=== PATIENT | male | born 1950 | race Caucasian/White ===

== ENCOUNTER 2024-12-21 18:14 | Inpatient (IN) | payer MEDICARE, SELFPAY ==
[2024-12-21] VITALS (25 sets, daily range): BP systolic 90–221; BP diastolic 67–160; BMI 40.6; BMI 27.1
[2024-12-21 12:50] LABS: Hematocrit 49.3 % (39.0-52.0); Hemoglobin 16.3 g/dL (13.0-18.0); Mean Corp Hgb Conc. 33.1 g/dL (33.0-37.0); Mean Corpuscular Volume 94.3 fL (80.0-94.0); Nucleated Red Blood Cells % 0 % (-); Platelet Count 240 10^3/uL (130-400); Red Cell Dist. Width 12.7 % (11.5-14.5)
[2024-12-21 13:03] LABS: COVID-19 Antigen Negative (Negative)
[2024-12-21 13:06] LABS: ALT (SGPT) 26 U/L (0-50); AST (SGOT) 22 U/L (17-59); Albumin 4.4 g/dl (3.5-5.0); Alkaline Phosphatase 69 U/L (38-126); Blood Urea Nitrogen 18 mg/dl (9-20); Calcium 9.1 mg/dl (8.4-10.2); Carbon Dioxide 27 mmol/L (22-30); Chloride 106 mmol/L (98-107); Glucose 116 mg/dl (70-99); Potassium 4.5 mmol/L (3.5-5.1); Sodium 138 mmol/L (135-145); Total Protein 7.9 g/dl (6.3-8.2); eGFR > 60.00
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
[2024-12-21 16:06] LABS: Troponin I 0.674 ng/ml
--- NOTE | 2024-12-21 16:25 | HPS.HSE ---
Addendum entered and electronically signed by Darin Scott MD 12/21/24 18:41:
This is an addendum to H&P written by Skye Norris on 12/21/2024. �Patient seen and examined independently with TECHNOLOGY EDUCATION TEACHER.
74-year-old male past medical history of hypertension with medication stopped 5 years due to hypotension, presenting with sweats and chills, cough, chest discomfort for past 5-7 days. �No shortness of breath. �Went to urgent care had chest x-ray
which supposedly clear congestive heart failure versus multilobar pneumonia.
Vital signs show blood pressure of 207/140.
Troponin of 0.674. �Cardiac BNP of 4500. �EKG shows Q waves in leads V1 to V4. �Chest x-ray shows mild basilar opacification likely subsegmental atelectasis, tiny right pleural effusion.
Patient with likely late presentation NSTEMI/congestive heart failure with hypertensive emergency.
Aspirin started. �Heparin drip started. �Check A1c and lipid panel. �Trend troponins until peak. �Check echocardiogram. �40 IV daily. �Nitroglycerin drip. �Cardiology consulted. �N.p.o. past midnight for catheterization tomorrow.
Original Note:
Family Physician
-
Family Physician: Zay Bauman
Chief Complaint
-
cough
History of Present Illness
Patient is a 74-year-old male with past medical history significant for hypertension who presented to [facility] ED for evaluation of ongoing cough for past 5-7 days. Patient reports that he randomly started with a cough 5-7 days a go and it has been
persistent every since. He does acknowledge some orthopnea over the past 5-7 days and states he had subjective fever and chills. He notes that he was on medication for his blood pressure years ago but was stopped because he took it in evening and
his blood pressure was low in evenings. He reports that he monitors blood pressure at home and is sometimes high but always 'comes right back down to 120-130s.' He also reports he believes he was on chelation therapy with primary care provider but
was stopped because of Covid closures. He notes he has not seen his provider since July 2019. With further questioning patient reports some left shoulder pain that he associated to be musculoskeletal or nerve pain. Patient denies any specific chest
pain, nausea, vomiting, diarrhea or diaphoresis.
Medical History
Past Medical History
Past Medical History: Reports Other
Additional Past Medical History:
hypertension
Past Surgical History: Reports Other
Additional Past Surgical History:
2010: polyp removed
Back surgery L-2
Social History
Tobacco: Non-smoker
Alcohol: Occasional
Drug: None
Personal:
Living: With Family
Employment: Employed
Family History
Family History: Other (Mother: brain aneurysm )
Allergies / Home Medications
Allergies reflects when Allergies were last updated in [facility].
Home Medications with original date entered in [facility]
Allergy/Medication List:
Allergies
Allergy/AdvReac Type Severity Reaction Status Date / Time
No Known Allergies Allergy Verified 12/21/24 12:26
Home Medications
ashwagandha extract 120 mg capsule 120 mg PO DAILY 12/21/24
Review of Systems
-
History Source: Patient
Constitutional: Reports No Symptoms
EENT: Reports No Symptoms
Respiratory: Reports Cough and Trouble Breathing (exertional dyspnea )
Cardiac: Reports No Symptoms
Abdomen/GI: Reports No Symptoms
: Reports No Symptoms
Musculoskeletal: Reports No Symptoms
Skin: Reports No Symptoms
Neurological: Reports No Symptoms
Endocrine: Reports No Symptoms
Hematologic/Lymphatic: Reports No Symptoms
Psych: Reports No Symptoms
Physical Exam
Vital Signs
Vital Signs
Temp Pulse Resp BP Pulse Ox
97.8 F 77 17 177/120 94
12/21/24 12:23 12/21/24 14:23 12/21/24 14:15 12/21/24 14:03 12/21/24 15:06
Physical Exam
General: No Apparent Distress, Comfortable and Conversant
HEENT: NormoCephalic, Moist mucous membranes and Atraumatic
Respiratory: Clear and Non Labored Respirations
Cardiac: S1/S2, Regular Rhythm and Tachycardia; No Murmur, Rub or Gallop
Breast: Deferred by me
GI: Soft, Non Tender, Non Distended and Normal Bowel Sounds; No Organomegaly
Rectal: Deferred by Provider
Genito-urinary: Deferred by me
Musculoskeletal: No Clubbing, No Cyanosis and No Edema
Skin: Warm
Neuro: Awake, AO x 3 and Nonfocal/grossly intact
Psych: Calm
Laboratory Results
-
12/21/24 12:34
12/21/24 12:33
Laboratory Results
Total Bilirubin 0.9 mg/dl (0.2-1.3) 12/21/24 12:33
AST 22 U/L (17-59) 12/21/24 12:33
ALT 26 U/L (0-50) 12/21/24 12:33
Alkaline Phosphatase 69 U/L (38-126) 12/21/24 12:33
Troponin I 0.674 ng/ml H* 12/21/24 15:14
Data Reviewed
-
Diagnostic Radiology: Report Reviewed by me (CXR: Mild bibasilar opacification most likely representing subsegmental atelectasis and tiny right pleural effusion. Pulmonary vascularity at least top normal.)
Medical Tests (Nuc Med, Echo, EKG etc): Report Reviewed by me (EKG: NORMAL SINUS RHYTHM ANTEROLATERAL INFARCT , AGE UNDETERMINED)
Lab Data: Labs Reviewed by me (trop 0.674, pBNP 4520)
Impression/Plan
-
IMPRESSION/PLAN:
#cough and exertional dyspnea likely 2/2 late presentation GA and CHF
trop 0.674, pBNP 4520
CXR: Mild bibasilar opacification most likely representing subsegmental atelectasis and tiny right pleural effusion.
Pulmonary vascularity at least top normal.
EKG: NORMAL SINUS RHYTHM
ANTEROLATERAL INFARCT , AGE UNDETERMINED
EKG concern for late presentation anterior GA as with Q waves and ST elevations anteriorly
- Admit to IVU
- Consult cardiology
- trend troponin
- IV Lasix 40mg daily, for suspected CHF
- ECHO in AM
- NPO at midnight for likely electronic lab technician tomorrow
#hypertensive emergency
- start nitro gtt for BP control
Code status: full code
DVT Prophylaxis: heparin gtt
[2024-12-21] MEDS: LASIX 80 MG IV (16:40)
[2024-12-21] MEDS: NITROSTAT (SUBLINGUAL) 0.4 MG SL (16:43)
[2024-12-21] MEDS: ASPIRIN 325 MG PO (16:48)
--- NOTE | 2024-12-21 16:55 | CON.CAR ---
Addendum entered and electronically signed by Dipika Rodrigez MD 12/22/24 08:40:
Late entry: Patient was seen at bedside in the emergency room on December 21, 2024 around 5 PM
I saw and examined the patient.
The Websphere Portal Developer's note was reviewed and I agree with the note.
Comment: Briefly, Dean is a 74-year-old gentleman with untreated hypertension, last medical care obtained prior to [facility], history of relation therapy for hypertension which was stopped in 2019 who presents with 1 week history of cough and
associated shortness of breath as well as orthopnea found to have concern for recent anterior PA with Q waves noted precordially concerning for a late presenting PA. He never had any chest discomfort and does not have any currently. He feels like
his breathing is comfortable on room air. He was also found to be significantly hypertensive on presentation with blood pressures over 200s systolic and 100s diastolic. Troponin is 0.6. In the setting cardiology was consulted in the emergency
room.
Lab work and vital signs reviewed. On exam patient is somewhat anxious, is at bedside, regular rate, normal S1 and S2, no murmurs, rubs or gallops, bibasilar Rales, elevated JVP, normal carotid upstrokes, no carotid bruit, abdomen is soft,
nontender, nondistended with active bowel sounds, warm extremities without significant edema
Recommendations:
1. Given patient is currently chest pain-free with concern for late presenting PA we will work on monitoring patient over night on telemetry, trending troponins and EKGs.
2. Echocardiogram with Definity to assess biventricular function, rule out any significant valvular disease and rule out any evidence of LV thrombus.
3. We discussed risk and benefits of heart catheterization with him to define coronary anatomy which we will pursue tomorrow and patient is agreeable with this.
4. Daily baby aspirin, high intensity statin, beta-jack and nitro drip as discussed with emergency room physician given significant hypertension with concern for possible hypertensive emergency and acute decompensated heart failure, unclear if
systolic/diastolic or both.
5. Aggressive management of cardiovascular risk factors, check lipids and hemoglobin A1c
Further recommendations on findings of all of the above.
Dipika Rodrigez MD, [facility], [facility]
Original Note:
Consultation
Consultation Request
Date/Time Consultation Performed: 12/21/24
Requesting Provider: Dr. Morales
Performing Provider: Irma Bennett PA-C for Dr. Rodrigez
Reason for Consultation: late presentation PA, CHF
Medical History
-
Chief Complaint: SOB
History of Present Illness:
Patient is a 74-year-old male with past medical history of hypertension, previously on medication, however stopped for unclear reasons. He also reports history of chelation therapy for his high blood pressure, which was stopped in 2019 due to
COVID. He has not seen his primary care physician since that time. He reports about a week ago he developed cough and associated shortness of breath with exertion as well as orthopnea. He denies any chest discomfort, although on further
discussion, does state he recently has had some focal chest discomfort and some shoulder discomfort which he thought was muscular in origin. EKG with evidence of Q waves anteriorly suggestive of late presentation PA. Troponin 0.6. With
significant hypertension on arrival cardiology consulted for evaluation
PMH:
History of hypertension
Past Medical History
Past Medical History: Other (in HPI)
Social History
Tobacco: Non-Smoker
Alcohol: Occasional
Drug: None
Personal:
Living: With Family
Employment: Employed
Family History
Family History: Other (malhotra aneurysm in mother)
Allergies / Home Medications
Allergy/AdvReac Type Severity Reaction Status Date / Time
No Known Allergies Allergy Verified 12/21/24 12:26
�Medication �Instructions �Recorded �Confirmed �Type
ashwagandha extract 120 mg capsule 120 mg PO DAILY 12/21/24 12/21/24 History
Review of Systems
-
History Source: Patient and Family
All other systems: Negative unless noted
Physical Exam
Vital Signs
Temp Pulse Resp BP Pulse Ox
97.8 F 77 17 221/160 94
12/21/24 12:23 12/21/24 14:23 12/21/24 14:15 12/21/24 16:43 12/21/24 15:06
Lab Results
12/21/24 12:34
12/21/24 12:33
Troponin I 0.674 ng/ml H* 12/21/24 15:14
Axc-J-Ijmlssfzgff Pept 4520 pg/ml 12/21/24 15:14
Physical Exam
General: No Apparent Distress and Comfortable
HEENT: Normocephalic, Anicteric and Moist Mucous Membranes
Respiratory: Clear and Non Labored Respirations
Cardiac: S1/S2, Regular Rhythm and Other (Tachycardic)
GI: Soft, Non Tender, Non Distended and Normal Bowel Sounds
Musculoskeletal: No Clubbing, No Cyanosis and No Edema
Skin: Warm and Dry
Neuro: AO x 3
Impression / Plan
-
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
Assessment:
Presentation with SOB
Acute CHF, suspected reduced EF
Suspected ischemic cardiomyopathy
Suspected late presentation anterior PA
HTN emergency
History of hypertension with noncompliance
ECHO 12/22/24: pending
Plan:
- Patient presents with shortness of breath and cough which he developed in the last week. He denies any chest pain then or presently
- By EKG concern for late presentation anterior PA as with Q waves and ST elevations anteriorly
- Troponin 0.6, trend
- Status post 324 of aspirin. Continue 81 mg daily
- Start IV heparin
- Check echo with definity, suspect EF will be reduced. want to rule out LV thrombus
- N.p.o. for cardiac catheterization in a.m.
- With evidence of acute heart failure. proBNP 4520. Chest x-ray with evidence of pulmonary edema. Continue IV Lasix, first dose given in ER
- Given significant blood pressure elevation, giving sublingual nitro but likely would place on IV nitro gtt if BPs remain elevated
- d/w patient and at bedside.
- d/w ER nursing
Data Reviewed
-
EKG: Tracing Personally Visualized and interpreted
Radiology: Report Reviewed by me
Labs: Labs Reviewed by me
Old Records: Reviewed
[2024-12-21] MEDS: HEPARIN 4000 UNITS IV (17:19)
[2024-12-21] MEDS: HEPARIN 25000 UNITS/250 ML IV (17:23)
[2024-12-21] MEDS: NITROGLYCERIN PREMIX 250 IV (17:33)
[2024-12-21 17:36] LABS: APTT 33.2 Sec (23.4-35.0)
--- NOTE | 2024-12-21 20:30 | EDRN ---
Went into patient's room to take him upstairs, patient was diaphoretic and blood pressure 111/83, repeat blood pressure completed and was 90/74, placed nitro on standby and lowered patient's head down, also placed patient on 2l NC as o2 was 88%,
patient reporting not feeling well at this time, after placing nitro on standby pressure is coming up with a systolic of 130s, patient reports feeling slightly better, states he is sensitive to medications. When transferring patient up to IVU
updated the nurse receiving the patient of what occurred prior to come up to IVU
[2024-12-21 21:25] LABS: Troponin I 0.728 ng/ml
[2024-12-21] MEDS: LIPITOR PO (21:32)
[2024-12-22] VITALS (40 sets, daily range): BP systolic 100–195; BP diastolic 62–129; BMI 26.9
[2024-12-22 00:06] LABS: APTT 38.3 Sec (23.4-35.0)
[2024-12-22 00:27] LABS: Troponin I 0.759 ng/ml
--- NOTE | 2024-12-22 01:21 | PTCARENOTE ---
Received pt from ED @ 2029. AAOx3. Nitro gtt was put on standby due BP dropping prior to transportation. Reinitiated @ 2100 due to SBP >160. NSR w/ PACs, multiform PVCs on monitor. Heparin gtt running @ 1000 units/hr through right forearm. Trending
trops Q3H with EKG as ordered. Denies SOB @ this time. Verbalized feeling much better post lasix-- no longer coughing. Discussed plan of care for evening and being NPO @ midnight. Pt verbalizes understanding. Call schwarz within reach.
[2024-12-22 03:10] LABS: Hematocrit 43.1 % (39.0-52.0); Hemoglobin 14.7 g/dL (13.0-18.0); Mean Corp Hgb Conc. 34.1 g/dL (33.0-37.0); Mean Corpuscular Volume 93.3 fL (80.0-94.0); Platelet Count 232 10^3/uL (130-400); Red Cell Dist. Width 12.6 % (11.5-14.5)
[2024-12-22 03:33] LABS: Blood Urea Nitrogen 23 mg/dl (9-20); Calcium 8.8 mg/dl (8.4-10.2); Carbon Dioxide 25 mmol/L (22-30); Chloride 106 mmol/L (98-107); Estimated Creatinine Clearance 57 ml/min; Glucose 104 mg/dl (70-99); HDL Cholesterol 36 mg/dl; LDL Cholesterol, Calculated 139 mg/dl; Potassium 4.1 mmol/L (3.5-5.1); Sodium 137 mmol/L (135-145); Very Low Density Lipoprotein 24 mg/dl (0-30); eGFR > 60.00
[2024-12-22 04:02] LABS: Troponin I 0.798 ng/ml
[2024-12-22 07:56] LABS: APTT 52.9 Sec (23.4-35.0)
[2024-12-22 08:13] LABS: Troponin I 0.774 ng/ml
--- NOTE | 2024-12-22 08:23 | PTCARENOTE ---
Assumed care of pt from shift production supervisor RN. AAOx3. NSR on tele, HRs 60s. BP 195/126. Nitro gtt restarted and titrated up to 10mcg/min. Goal SBP < 160. Current BP is 152/96. Continues on Heparin gtt. Next PTT due at 1400. Denies chest pain/discomfort at
this time. Pt remains NPO for cardiac cath today. Echo completed at bedside. Assessment documented. Pt resting in bed, call schwarz in reach.
[2024-12-22] MEDS: LOW STRENGTH ASPIRIN 81 MG PO (08:39)
[2024-12-22] MEDS: LASIX 40 MG IV ×2 (08:39→20:59)
--- NOTE | 2024-12-22 08:41 | ITS.CL.CATH ---
Dumper Bailer Operator - Catheterization
Cardiac Catheterization
Procedure Report:
LEFT HEART CATHETERIZATION
Date of Procedure: December 22, 2024
Referring: Dipika Rodrigez MD, [facility], [facility]
PROCEDURES:
1. Left heart catheterization, coronary angiogram.
2. Moderate sedation.
3. Functional physiologic testing with iFR of RCA
INDICATION: Dean is a 74-year-old gentleman with untreated hypertension, last medical care obtained prior to [facility], history of relation therapy for hypertension which was stopped in 2019 who presents with 1 week history of cough and associated
shortness of breath as well as orthopnea found to have concern for recent anterior SD with Q waves noted precordially concerning for a late presenting SD. He never had any chest discomfort and does not have any currently. He feels like his
breathing is comfortable on room air. He was also found to be significantly hypertensive on presentation with blood pressures over 200s systolic and 100s diastolic. Troponin is 0.6.
ACCESS: Right radial artery, 6Fr. sheath, under US guidance.
HEMODYNAMICS : (mmHg)
AO (s/d) : 175/108
LVEDP : 25
No significant gradient across the aortic valve to suggest aortic stenosis.
CORONARY FINDINGS
Dominance: Right
Left Main Trunk (LMT): Large caliber vessel that gives rise to the LAD and LCx branches. Terminal left main has 20 to 30% stenosis
Left Anterior Descending Artery (LAD): Large caliber vessel that gives off 1 major large caliber arborizing diagonal branchas it courses along the anterior inter-ventricular groove before wrapping around the cardiac apex. There is a 90% hazy
stenosis in the proximal portion and a 80% stenosis in the midportion just distal to the takeoff of a large caliber branching diagonal.
Left Circumflex Artery (LCx): Medium caliber vessel that gives off 2 major obtuse marginal (OM) branches as it courses along the atrio-ventricular (AV) groove. OM1 has 30 to 40% proximal stenosis. OM 2 is a small caliber vessel with 2 serial
ostial and proximal 70% stenosis however this is not a PCI or a CABG target.
Right Coronary Artery (RCA): Large caliber dominant vessel that gives rise to the posterior descending artery (RPDA) and postero-lateral ventricular (RPLV) branches distally. There is diffuse up to 50 to 60% atherosclerotic plaque in the proximal
to midportion. iFR here was negative at 0.98.
HEMODYNAMIC ASSESSMENT OF THE PROXIMAL TO MID WITH A [place] OMNI WIRE: The origin of the RCA was cannulated with a 6 Fr JR guide catheter. Intravenous heparin was administered and the ACT was followed during the procedure. Two hundred micrograms
of intracoronary nitroglycerin was given through the guide catheter. A [place] Omni wire was advanced to the guide catheter tip and normalized just outside the guide catheter. The Omni wire was then carefully manipulated across the stenosis in the
proximal to mid RCA with the iFR above the ischemic threshold serially measuring 0.98 times. The Omni wire was then pulled back to the guide catheter where the Pd/Pa measured 1.0 confirming no baseline drift in pressure readings.
SEDATION: 47 minutes of procedural sedation was utilized. IV Midazolam and IV Fentanyl were administered. An independent medical accountant was present to assist with and help manage the patient's level of consciousness and physiologic status.
RADIATION SUMMARY: Fluoro Time (min): 3.1, Dose (mGy): 461.3, DAP (Gy.cm2) : 29.5
Closure Device: There were no immediate intra-procedural complications. The sheath was pulled in the chemical lab supervisor and a vascular-band applied to the right wrist for radial artery hemostasis using the patent hemostasis technique.
CONCLUSIONS
1. Moderate diffuse up to 50 to 60% atherosclerotic plaque in the proximal to midportion of the RCA with IFR negative at 0.98.
2. Large caliber LAD with 90% stenosis in the proximal portion and 80% stenosis in the midportion at the level of the takeoff of a large arborizing diagonal branch.
3. Elevated LVEDP at 25 mmHg.
RECOMMENDATIONS
1. Wean radial band per protocol. Monitor right hand perfusion and for bleeding from the radial site following removal of the vascular-band following trans-radial access.
2. Continue aggressive medical therapy and risk factor modification for secondary CAD prevention.
3. Heart team discussion with CT surgery consult for consideration for coronary artery bypass grafting to LAD and diagonal given concerns for possible medication adherence and compliance versus PCI to proximal and mid LAD jailing a large arborizing
major diagonal branch.
4. Eventual referral for outpatient cardiac rehab
Dipika Rodrigez MD, FACC, [facility]
--- NOTE | 2024-12-22 10:45 | CM ---
Chart reviewed. Patient is independent of ADLS, lives with his in a [address], 2 YO, 0 DME. Plan is for the patient to return home. CM to follow
[2024-12-22] MEDS: TYLENOL 650 MG PO (11:55)
--- NOTE | 2024-12-22 12:54 | W.PN.HOSP.TC ---
Today's Communication/Plan
-
Continue with nitro infusion
Heparin infusion
Cardiac cath
Echo pending
Continue with aspirin, statin
Continue with IV Lasix
Monitor creatinine closely
Assessment / Plan
Assessment / Plan
General: No Apparent Distress, Comfortable and Conversant
HEENT: NormoCephalic, Moist mucous membranes and Atraumatic
Respiratory: Clear and Non Labored Respirations
Cardiac: S1/S2, Regular Rhythm and Tachycardia; No Murmur, Rub or Gallop
Breast: Deferred by me
GI: Soft, Non Tender, Non Distended and Normal Bowel Sounds; No Organomegaly
Rectal: Deferred by Provider
Genito-urinary: Deferred by me
Musculoskeletal: No Clubbing, No Cyanosis and No Edema
Skin: Warm
Neuro: Awake, AO x 3 and Nonfocal/grossly intact
Psych: Calm
#Hypertension emergency
#Primary hypertension not on meds as outpatient
Currently on nitroglycerin infusion
Postcardiac catheterization to be started on p.o. antihypertensive medication
#NSTEMI
Continue with heparin drip
Echocardiogram pending
Plan for cardiac catheterization today
Continue aspirin and statin
#Acute CHF suspected
#Suspected ischemic cardiomyopathy
Continue with IV Lasix
Seems to have a good response
Will await further echocardiogram results
Goal-directed medical therapy pending cath/echo
#Hyperlipidemia
Continue with high-dose Lipitor
#Impaired glucose tolerance
A1C pending
DVT prophylaxis-heparin infusion
Full code
Anticipated Discharge: > 48 hours
Subjective/Interval History
-
Date of Service: December 22, 2024
States some mild headache due to nitroglycerin drip
Denies any chest pain or palpitations currently
Objective Data
-
Labs:
Laboratory Results
0812/22/24 12/22/24
23:42 02:41 07:35
WBC 6.9
Hgb 14.7
Hct 43.1
Plt Count 232
APTT 38.3 H 52.9 H
Sodium 137
Potassium 4.1
Chloride 106
Carbon Dioxide 25
BUN 23 H
Creatinine 1.2
Glucose 104 H
Calcium 8.8
12/22/24
14:00
WBC
Hgb
Hct
Plt Count
APTT Pending
Sodium
Potassium
Chloride
Carbon Dioxide
BUN
Creatinine
Glucose
Calcium
Vital Signs:
Vital Signs
Temp Pulse Resp BP Pulse Ox
98.5 F 79 16 159/110 92
12/22/24 11:43 12/22/24 11:30 12/22/24 11:43 12/22/24 11:00 12/22/24 11:43
I&O
12/21/24 12/22/24 12/23/24
06:59 06:59 06:59
Output Total 150 / 150 400 / 400
Balance -150 / -150 -400 / -400
[2024-12-22] MEDS: HEPARIN 25000 UNITS/250 ML IV ×2 (13:04→23:02)
[2024-12-22 14:36] LABS: APTT 64.1 Sec (23.4-35.0)
[2024-12-22 15:02] LABS: Glycohemoglobin (HgbA1c) 5.5 % (4.0-5.6)
[2024-12-22 17:15] LABS: ACT-LR - POC 311 Seconds (116-155)
[2024-12-22] MEDS: NITROGLYCERIN PREMIX 250 IV (17:34)
[2024-12-22] MEDS: LIPITOR 80 MG PO (17:46)
[2024-12-22] MEDS: NORVASC 5 MG PO (17:46)
--- NOTE | 2024-12-22 17:47 | PTCARENOTE ---
Pt received s/p [facility]. AAOx3. NSR on tele, HR 70s. BP 170/114. Nitro gtt restarted at 20mcg/min. Titrating for goal systolic BP < 160. R radial with TR band in place, 14 cc remain in device. R radial pulse palpable. Neurovascular checks WDL. Plan to
restart Heparin gtt at 2300. CT surg consulted. Pt resting in bed, call schwarz in reach.
[2024-12-22] MEDS: NSS 1000 IV (17:55)
--- NOTE | 2024-12-22 18:47 | CONSULT.CT ---
Consultation
-
Date/Time Consultation Requested: 12/22/241729
Date/Time Consultation Performed: 12/22/241814
Requesting Provider: Dr. Dipika Rodrigez
Performing Provider: KEREN Ken for Dr. Alber Mathews
Reason for Consultation: Multivessel CAD
Patient History
Physicians
Family Physician: Dr. Zay Bauman
Outpatient [employer] Redevelopment Site Manager: None
Inpatient [employer] Manager: None
History of Present Illness
Mr. Dean Jo is a pleasant 74-year-old male with a PMHx of HTN who presented to [facility] with complains of ongoing cough over the the past 5 to 7 days with accompanying shortness of breath. Patient reported that he initially presented to
urgent care due to his persistent cough in which he was found to be hypertensive and referred to the emergency room. In the emergency room he ruled in for hypertensive emergency. He reported prior history of chelation therapy for his hypertension,
which was stopped in 2019 due to lack of follow-up during pandemic. He reported that he does trend his blood pressure at home which is sometimes high. He further reported orthopnea, dyspnea, PND, and cough over the last 7 days. ProBNP was 4520.
Cardiology was consulted in which there was concern for late presenting FL. He attained a TTE which showed severely reduced LVEF of 24%, hypokinesis of the anterior wall, anterior septum and apical segments, mild to moderate AI, and dilated aortic
root measuring 4.7 cm. Troponin was trended which have plateaued at 0.75-0.77. He underwent a LHC with Dr. Rodrigez which showed disease to LAD and diagonal in which CT surgery was consulted for consideration of CABG.
Past Medical History
Past Medical History: HTN
Past Surgical History
Past Surgical History: None
Family History
Mother: at Age (70s)
Father: at Age (90s)
Family Medical History: Aneurysm (Maternal - Cerebral Aneurysm)
Social History
Alcohol: Occasional
Drug: None
Tobacco: Non-Smoker
Personal:
Living: With Spouse
Allergies
Allergy/AdvReac Type Severity Reaction Status Date / Time
No Known Allergies Allergy Verified 12/21/24 12:26
Home Medications
�Medication �Instructions �Recorded �Confirmed �Type
ashbertagandha extract 120 mg capsule 120 mg PO DAILY 12/21/24 12/21/24 History
Review of Systems
-
History Source: Patient
General: Reports No Symptoms
HEENT: Reports No Symptoms
Respiratory: Reports Cough, PND and Other (Orthopnea)
Cardiac: Reports No Symptoms
Abdomen/GI: Reports No Symptoms
: Reports No Symptoms
Musculoskeletal: Reports No Symptoms
Skin: Reports Other (B/L Varicose Veins)
Neurological: Reports No Symptoms
Physical Exam
Vital Signs
Temp 98.1 F 12/22/24 15:16
Temp route: Oral 12/22/24 15:16
Pulse 77 12/22/24 18:45
Rhythm: Normal sinus rhythm 12/22/24 08:28
With- Bundle Branch Block Confi, PAC's, PVC'S Polymorphic 12/21/24 21:53
Resp Rate 19 12/22/24 15:16
Blood pressure 135/92 12/22/24 18:30
Blood pressure extremity used: Left upper arm 12/22/24 15:16
Position: Lying 12/22/24 15:16
MAP (cuff-Valentin Monitor) 105 12/22/24 18:30
SaO2 93 12/22/24 15:16
Oxygen Mode of Delivery Room air 12/22/24 15:16
Can the patient verbally communicate their pain? Yes 12/22/24 12:55
Pain scale ratin 12/22/24 12:55
Actual Weight 89.9 kg 12/22/24 06:00
Body Mass Index (BMI) 26.9 12/22/24 06:00
Labs
12/22/24 02:41
12/22/24 02:41
APTT 64.1 Sec (23.4-35.0) H 12/22/24 14:09
Hemoglobin A1c 5.5 % (4.0-5.6) 12/21/24 20:50
Troponin I 0.774 ng/ml H* 12/22/24 07:35
Muk-E-Faawraamajt Pept 4520 pg/ml 12/21/24 15:14
Exam
General: Well Developed, Well Nourished and No Apparent Distress
HEENT: Normocephalic, Atraumatic, PERRLA and EOMI
Respiratory: Clear
Cardiac: S1/S2 and Regular Rhythm
GI: Soft, Non Tender, Non Distended and Normal Bowel Sounds
Skin: Warm, Dry and Other (R wrist TR band)
Neuro: Awake, Alert, Oriented, AO x 3 and No Motor Deficits
Extremities: Pulses (+2 DP pulse B/L, +2 Radial B/L)
Psych: Calm
Assessment / Plan
-
#Multivessel CAD
- Patient's case will be discussed with the Attending Physician
- Further details regarding surgical timing and/or intervention will be determined after Attending Physicians full evaluation
- Routine preoperative CXR orders will be initiated including:
- Pre-operative labwork including T & S
- Cerebrovascular US
- CT Chest
- Vein Mapping due to varicose veins
- STS risk stratification score will be calculated after preoperative testing is complete
- Continue NTG and Heparin gtt per Cardiology Team.
[2024-12-22] MEDS: COREG 6.25 MG PO (20:58)
[2024-12-23] VITALS (15 sets, daily range): BP systolic 97–158; BP diastolic 56–98; BMI 26.9; BMI 27.1
[2024-12-23 05:22] LABS: Hematocrit 42.9 % (39.0-52.0); Hemoglobin 14.7 g/dL (13.0-18.0); Mean Corp Hgb Conc. 34.3 g/dL (33.0-37.0); Mean Corpuscular Volume 92.3 fL (80.0-94.0); Platelet Count 226 10^3/uL (130-400); Red Cell Dist. Width 12.8 % (11.5-14.5)
[2024-12-23 05:26] LABS: INR 1.03; PT 14.0 Sec (11.4-14.6)
[2024-12-23 05:28] LABS: APTT 42.7 Sec (23.4-35.0)
[2024-12-23 05:43] LABS: ALT (SGPT) 18 U/L (0-50); AST (SGOT) 19 U/L (17-59); Albumin 3.6 g/dl (3.5-5.0); Alkaline Phosphatase 66 U/L (38-126); Blood Urea Nitrogen 20 mg/dl (9-20); Calcium 8.0 mg/dl (8.4-10.2); Carbon Dioxide 24 mmol/L (22-30); Chloride 106 mmol/L (98-107); Estimated Creatinine Clearance 63 ml/min; Glucose 105 mg/dl (70-99); Potassium 4.0 mmol/L (3.5-5.1); Sodium 136 mmol/L (135-145); Total Protein 6.5 g/dl (6.3-8.2); eGFR > 60.00
[2024-12-23] MEDS: COREG 6.25 MG PO ×2 (08:19→20:14)
[2024-12-23] MEDS: NORVASC 5 MG PO (08:20)
[2024-12-23] MEDS: LOW STRENGTH ASPIRIN 81 MG PO (08:20)
[2024-12-23] MEDS: LASIX 40 MG IV ×2 (09:01→17:34)
--- NOTE | 2024-12-23 11:28 | W.PN.CARDCBS ---
Addendum entered and electronically signed by Jose Garcia MD 12/23/24 12:40:
I saw and examined the patient.
The SAND MIXER MACHINE or PA's note was reviewed and I agree with the note.
Comment: General: Well developed, well nourished in NAD.
Neck: Supple, no JVD, HJR, carotids +2 B/L, no bruits bilaterally.
Heart: Non displaced PMI, RRR, no murmurs, No S3, S4, no rubs.
Lungs: Clear to auscultation bilaterally, no wheeze, rhonchi, rubs bilaterally,
normal expiratory phase.
Extremities: No clubbing, cyanosis or edema bilaterally.
Neuro: Grossly nonfocal, awake, alert and oriented x3.
No chest pain or shortness of breath. Await CT surgical input regarding possible CABG versus high risk stenting. Discussed with patient and nursing in detail. Continue IV heparin
Original Note:
Today's Communication / Plan
-
Awaiting CT surgery input regarding revascularization
Impression / Plan
-
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
Assessment:
Presentation with SOB
Acute HF
ischemic cardiomyopathy
Suspected late presentation anterior HI
HTN emergency
History of hypertension with noncompliance
Coronary artery disease
Cardiac cath 12/22/2024: Left main: Terminal left main 20 to 30% stenosis. LAD: 90% proximal stenosis, 80% mid stenosis at level of takeoff of large diagonal branch. Left circumflex: OM1 30 to 40% proximal, OM2 small caliber vessel with 2 serial
ostial proximal 70% stenosis not a PCI or CABG target. RCA: 50 to 60% atherosclerotic plaque proximal to mid, IFR -0.98. LVEDP 25 mmHg
ECHO 12/22/24: : EF 24%, hypokinesis anterior wall, anterior septum and apical segments consistent with LAD wall motion abnormality, mild to moderate AI
Plan:
- Patient presented 12/1324 with shortness of breath and cough, EKG concern for late presentation anterior HI as with Q waves and ST elevations anteriorly
- Troponin peak 0.798
-Cardiac catheterization 12/22 with multivessel CAD and elevated LVEDP
-Echo 12/22 EF 24%
-In process of heart team discussion with CT surgery consult for consideration for CABG to LAD and diagonal versus PCI to proximal and mid LAD jailing a large arborizing major diagonal branch
-Patient is chest pain-free, nitro weaned down to 5 mcg/minute
- Continue aspirin, statin, beta-jack
- Continue IV heparin
- Advance GDMT for heart failure reduced EF
- Currently on Coreg 6.25 mg twice daily, consider adding REBECCA/ARB but will wait to see if undergoing surgery, Spironolactone, Farxiga
- Labs with stable renal function, creatinine 1.1, BUN 20, K 4.0
- LDL 139, newly started on statin.
Progress Note - [place]erry Terminal Supervisor
Subjective
Date of Service: December 23, 2024
Denies chest pain, shortness of breath
Cath yesterday revealing multivessel CAD, echo with EF 24%
Objective
Labs:
12/23/24 05:04
12/23/24 05:04
Labs
Hgb 14.7 g/dL (13.0-18.0) 12/23/24 05:04
Hct 42.9 % (39.0-52.0) 12/23/24 05:04
Plt Count 226 10^3/uL (130-400) 12/23/24 05:04
PT 14.0 Sec (11.4-14.6) 12/23/24 05:04
INR 1.03 12/23/24 05:04
APTT 42.7 Sec (23.4-35.0) H 12/23/24 05:04
Sodium 136 mmol/L (135-145) 12/23/24 05:04
Potassium 4.0 mmol/L (3.5-5.1) 12/23/24 05:04
BUN 20 mg/dl (9-20) 12/23/24 05:04
Creatinine 1.1 mg/dL (0.7-1.3) 12/23/24 05:04
Glucose 105 mg/dl (70-99) H 12/23/24 05:04
Troponins
12/21/24 12/21/24 12/21/24
15:14 20:49 23:42
Troponin I 0.674 H* 0.728 H* 0.759 H*
12/22/24 12/22/24
02:41 07:35
Troponin I 0.798 H* 0.774 H*
Vital Signs and I&O:
Vital Signs
Temp Pulse Resp BP Pulse Ox
98.2 F 73 18 146/83 96
12/23/24 08:00 12/23/24 09:15 12/23/24 08:00 12/23/24 09:01 12/23/24 08:00
Vital Signs
Temp Pulse Resp BP Pulse Ox
98.2 F 73 18 146/83 96
12/23/24 08:00 12/23/24 09:15 12/23/24 08:00 12/23/24 09:01 12/23/24 08:00
Intake & Output
12/21/24 12/22/24 12/23/24 12/24/24
06:59 06:59 06:59 06:59
Intake Total 500 / 500 480 / 480
Output Total 150 / 150 1000 / 1000 200 / 200
Balance -150 / -150 -500 / -500 280 / 280
Physical Exam
Physical Exam
GEN: No distress, awake, Ox3
HEENT: supple, anicteric, mmm
LUNGS: Decreased at bases
CV: Reg, S1/S2, no murmur
ABD: soft, BS+, NT/ND
EXT: No edema. R radial cath site nontender, dressing in place, no hematoma
NEURO: Gross non-focal
SKIN: No rash
--- NOTE | 2024-12-23 12:16 | W.PN.HOSP.TC ---
Today's Communication/Plan
-
Continue nitro and heparin infusion per cardiology
IV Lasix
Monitor creatinine closely
Await CT surgery input
Assessment / Plan
Assessment / Plan
General: No Apparent Distress, Comfortable and Conversant
HEENT: NormoCephalic, Moist mucous membranes and Atraumatic
Respiratory: Clear and Non Labored Respirations
Cardiac: S1/S2, Regular Rhythm and Tachycardia; No Murmur, Rub or Gallop
Breast: Deferred by me
GI: Soft, Non Tender, Non Distended and Normal Bowel Sounds; No Organomegaly
Rectal: Deferred by Provider
Genito-urinary: Deferred by me
Musculoskeletal: No Clubbing, No Cyanosis and No Edema
Skin: Warm
Neuro: Awake, AO x 3 and Nonfocal/grossly intact
Psych: Calm
#NSTEMI
# Multivessel CAD
Continue with heparin drip
Catheter report noted. Per interventional cardiology await further CT surgery input for bypass versus advanced PCI
Preop testing ordered per CT surgery-ultrasound, CT chest
Continue aspirin and statin and bb.
Currently on nitro infusion
#Hypertension emergency
#Primary hypertension not on meds as outpatient
Currently on nitroglycerin infusion
Continue with carvedilol and Norvasc-added this admit. Uptitrate as needed
#Acute HFrEF
#Suspected ischemic cardiomyopathy
Continue with IV Lasix 40 mg twice daily
Seems to have a good response
Strict I's and O's. Daily weights.
Monitor creatinine. Requires invasive monitoring.
#Hyperlipidemia
Continue with high-dose Lipitor
[id number]
#Impaired glucose tolerance
A1c 5.5
DVT prophylaxis-heparin infusion
Full code
Discussed with patient spouse at bedside in detail
Anticipated Discharge: > 48 hours
Subjective/Interval History
-
Date of Service: December 23, 2024
states of feeling sob wtih exertion
no chest pain
Objective Data
-
Labs:
Laboratory Results
12/23/24 12/23/24
05:04 12:00
WBC 7.5
Hgb 14.7
Hct 42.9
Plt Count 226
PT 14.0
INR 1.03
APTT 42.7 H Pending
Sodium 136
Potassium 4.0
Chloride 106
Carbon Dioxide 24
BUN 20
Creatinine 1.1
Glucose 105 H
Calcium 8.0 L
Total Bilirubin 0.9
AST 19
ALT 18
Alkaline Phosphatase 66
Vital Signs:
Vital Signs
Temp Pulse Resp BP Pulse Ox
97.2 F 76 18 146/83 97
12/23/24 11:37 12/23/24 11:37 12/23/24 11:37 12/23/24 09:01 12/23/24 11:37
I&O
12/22/24 12/23/24 12/24/24
06:59 06:59 06:59
Intake Total 500 / 500 480 / 480
Output Total 150 / 150 1000 / 1000 200 / 200
Balance -150 / -150 -500 / -500 280 / 280
--- NOTE | 2024-12-23 12:24 | CM ---
Chart reviewed. Patient is independent of ADLS, lives with his in a 2 [address], 2 YO, 0 DME. Patient waiting to find out plan of care, CT Surgery vs PCI. CM to follow discharge needs.
--- NOTE | 2024-12-23 12:38 | PTCARENOTE ---
Assumed care at 0700. Patient alert and oriented x4. Denies any chest pain or shortness of breath. Blood pressure remains stable on Nitro drip. Ambulated in room. Patient aware of plan of care. Call schwarz and personal belongings within reach.
[2024-12-23 12:53] LABS: APTT 52.0 Sec (23.4-35.0)
--- NOTE | 2024-12-23 15:19 | W.PN.UPDATE ---
Update Note
Progress Note Update
STS RISK SCORE
Procedure Type:�Isolated CABG
Perioperative Outcome Estimate %
Operative Mortality 3.21%
Morbidity & Mortality 11.1%
Stroke 1.24%
Renal Failure 1.79%
Reoperation 3.54%
Prolonged Ventilation 6.73%
Deep Sternal Wound Infection 0.071%
Long Hospital Stay (>14 days) 5.42%
Short Hospital Stay (<6 days)* 40.2%
Clinical Summary
Planned Surgery: Isolated CABG, Urgent, First cardiovascular surgery
Demographics: 74 year old, male, 90.5kg, 183cm, BMI: 27 kg/m�
Lab Values: Creatinine: 1.1 mg/dL, Hematocrit: 42.9%, WBC Count: 7.5 10�/�L, Platelet Count: 685817 cells/�L
Substance Abuse: Never smoker, Alcohol use: <=1 drink/week
Risk Factors / Comorbidities: Hypertension
Cardiac Status: Acute heart failure, NYHA Class II, Ejection Fraction = 24%
Coronary Artery Disease: 1 vessel diseased, Proximal LAD Stenosis >=70%, STEMI, [place]: 1 to 7 Days
Valve Disease: Moderate AR, Trivial/Trace TR
[2024-12-23] MEDS: LIPITOR 80 MG PO (17:34)
--- NOTE | 2024-12-23 18:00 | PTCARENOTE ---
pt continues to be sr on the monitor hr in the 60s, vss. pt offers no complaints at this time. pt ambulating around room and tolerating well. nitro and heparin gtt running per protocol, see documentation. pt educated on plan of care and pt
verbalized understanding. call schwarz within reach.
[2024-12-23] MEDS: HEPARIN 25000 UNITS/250 ML IV (19:19)
[2024-12-23 20:32] LABS: APTT 66.1 Sec (23.4-35.0)
[2024-12-24 00:44] VITALS: BMI 27.1
[2024-12-24 03:27] VITALS: BP 125/79
[2024-12-24 03:47] LABS: Hematocrit 41.5 % (39.0-52.0); Hemoglobin 14.2 g/dL (13.0-18.0); Mean Corp Hgb Conc. 34.2 g/dL (33.0-37.0); Mean Corpuscular Volume 93.3 fL (80.0-94.0); Nucleated Red Blood Cells % 0 % (-); Platelet Count 203 10^3/uL (130-400); Red Cell Dist. Width 12.7 % (11.5-14.5)
[2024-12-24 03:58] LABS: APTT 82.7 Sec (23.4-35.0)
[2024-12-24 04:11] LABS: Blood Urea Nitrogen 23 mg/dl (9-20); Calcium 8.1 mg/dl (8.4-10.2); Carbon Dioxide 25 mmol/L (22-30); Chloride 105 mmol/L (98-107); Estimated Creatinine Clearance 57 ml/min; Glucose 116 mg/dl (70-99); Magnesium 2.1 mg/dl (1.6-2.3); Potassium 3.7 mmol/L (3.5-5.1); Sodium 137 mmol/L (135-145); eGFR > 60.00
[2024-12-24 04:44] VITALS: BMI 27.1
[2024-12-24 07:22] VITALS: BP 139/87
[2024-12-24] MEDS: NORVASC 5 MG PO (08:09)
[2024-12-24] MEDS: LOW STRENGTH ASPIRIN 81 MG PO (08:09)
[2024-12-24] MEDS: LASIX 40 MG IV (08:09)
[2024-12-24] MEDS: COREG 6.25 MG PO ×2 (08:10→19:59)
--- NOTE | 2024-12-24 09:58 | W.PN.CARDCBS ---
Addendum entered and electronically signed by Jose Garcia MD 12/24/24 10:00:
Volume status appears okay. Change Lasix to 40 mg daily.
Original Note:
Today's Communication / Plan
-
Stable cardiology status
Awaiting timing for CABG
Impression / Plan
-
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
Assessment:
Presentation with SOB
Acute HF
found to have MV CAD cath 12/22
ischemic cardiomyopathy
Suspected late presentation anterior [place]
HTN emergency
History of hypertension with noncompliance
Cardiac cath 12/22/2024: Left main: Terminal left main 20 to 30% stenosis. LAD: 90% proximal stenosis, 80% mid stenosis at level of takeoff of large diagonal branch. Left circumflex: OM1 30 to 40% proximal, OM2 small caliber vessel with 2 serial
ostial proximal 70% stenosis not a PCI or CABG target. RCA: 50 to 60% atherosclerotic plaque proximal to mid, IFR -0.98. LVEDP 25 mmHg
ECHO 12/22/24: : EF 24%, hypokinesis anterior wall, anterior septum and apical segments consistent with LAD wall motion abnormality, mild to moderate AI
Plan:
Await timing for CABG
Stable cardiology status with no chest pain or shortness of breath
Continue IV nitroglycerin and IV heparin
Progress Note - Director Records Management
Subjective
Date of Service: December 24, 2024
No chest pain or shortness of breath
Objective
Labs:
12/24/24 03:35
12/24/24 03:35
Labs
Hgb 14.2 g/dL (13.0-18.0) 12/24/24 03:35
Hct 41.5 % (39.0-52.0) 12/24/24 03:35
Plt Count 203 10^3/uL (130-400) 12/24/24 03:35
PT 14.0 Sec (11.4-14.6) 12/23/24 05:04
INR 1.03 12/23/24 05:04
APTT 82.7 Sec (23.4-35.0) H 12/24/24 03:35
Sodium 137 mmol/L (135-145) 12/24/24 03:35
Potassium 3.7 mmol/L (3.5-5.1) 12/24/24 03:35
BUN 23 mg/dl (9-20) H 12/24/24 03:35
Creatinine 1.2 mg/dL (0.7-1.3) 12/24/24 03:35
Glucose 116 mg/dl (70-99) H 12/24/24 03:35
Troponins
12/21/24 12/21/24 12/21/24
15:14 20:49 23:42
Troponin I 0.674 H* 0.728 H* 0.759 H*
12/22/24 12/22/24
02:41 07:35
Troponin I 0.798 H* 0.774 H*
Vital Signs and I&O:
Vital Signs
Temp Pulse Resp BP Pulse Ox
98.3 F 74 18 139/87 97
12/24/24 07:35 12/24/24 09:00 12/24/24 07:35 12/24/24 08:10 12/24/24 08:36
Vital Signs
Temp Pulse Resp BP Pulse Ox
98.3 F 74 18 139/87 97
12/24/24 07:35 12/24/24 09:00 12/24/24 07:35 12/24/24 08:10 12/24/24 08:36
Intake & Output
12/22/24 12/23/24 12/24/24 12/25/24
06:59 06:59 06:59 06:59
Intake Total 500 / 500 655 / 655 480 / 480
Output Total 150 / 150 1000 / 1000 600 / 600
Balance -150 / -150 -500 / -500 55 / 55 480 / 480
Physical Exam
Physical Exam
General: Well developed, well nourished in NAD.
Neck: Supple, no JVD, HJR, carotids +2 B/L, no bruits bilaterally.
Heart: Non displaced PMI, RRR, no murmurs, No S3, S4, no rubs.
Lungs: Clear to auscultation bilaterally, no wheeze, rhonchi, rubs bilaterally,
normal expiratory phase.
Extremities: No clubbing, cyanosis or edema bilaterally.
Neuro: Grossly nonfocal, awake, alert and oriented x3.
[2024-12-24 10:26] LABS: APTT 85.1 Sec (23.4-35.0)
[2024-12-24] MEDS: COLACE 100 MG PO ×2 (10:41→19:59)
[2024-12-24] MEDS: HEPARIN 25000 UNITS/250 ML IV (10:41)
--- NOTE | 2024-12-24 11:55 | W.PN.HOSP.TC ---
Today's Communication/Plan
-
Continue with heparin and nitroglycerin infusion
Goal-directed medical therapy
Off of IV diuretics
Await further CT surgery input
Assessment / Plan
Assessment / Plan
General: No Apparent Distress, Comfortable and Conversant
HEENT: NormoCephalic, Moist mucous membranes and Atraumatic
Respiratory: Clear and Non Labored Respirations
Cardiac: S1/S2, Regular Rhythm and Tachycardia; No Murmur, Rub or Gallop
Breast: Deferred by me
GI: Soft, Non Tender, Non Distended and Normal Bowel Sounds; No Organomegaly
Rectal: Deferred by Provider
Genito-urinary: Deferred by me
Musculoskeletal: No Clubbing, No Cyanosis and No Edema
Skin: Warm
Neuro: Awake, AO x 3 and Nonfocal/grossly intact
Psych: Calm
#NSTEMI
# Multivessel CAD
Continue with heparin drip
Catheter report noted. Per interventional cardiology await further CT surgery input for bypass versus advanced PCI
Preop testing completed
Continue aspirin and statin and bb.
Currently on nitro infusion
CABG vs PCI.
Await input from CTS
#Hypertension emergency
#Primary hypertension not on meds as outpatient
Currently on nitroglycerin infusion
Continue with carvedilol and Norvasc-added this admit. Uptitrate as needed
#Acute HFrEF
#Suspected ischemic cardiomyopathy
Status post IV Lasix twice daily now on 40 mg p.o. Lasix daily.
Seems to have a good response
Strict I's and O's. Daily weights.
Monitor creatinine. Requires invasive monitoring.
#Hyperlipidemia
Continue with high-dose Lipitor
[id number]
#Impaired glucose tolerance
A1c 5.5
#Pulmonary nodule
Follow-up with PCP for repeat CAT scan
#Expansion of the abdominal aorta 3.5 cm
Cardiology on board
DVT prophylaxis-heparin infusion
Full code
Anticipated Discharge: > 48 hours
Subjective/Interval History
-
Date of Service: December 24, 2024
states talked to surgery earlier today
plan for pci on thursday per patient
Objective Data
-
Labs:
Laboratory Results
12/24/24 12/24/24
03:35 09:58
WBC 6.5
Hgb 14.2
Hct 41.5
Plt Count 203
APTT 82.7 H 85.1 H
Sodium 137
Potassium 3.7
Chloride 105
Carbon Dioxide 25
BUN 23 H
Creatinine 1.2
Glucose 116 H
Calcium 8.1 L
Vital Signs:
Vital Signs
Temp Pulse Resp BP Pulse Ox
98.3 F 61 18 139/87 97
12/24/24 07:35 12/24/24 11:00 12/24/24 07:35 12/24/24 08:10 12/24/24 08:36
I&O
12/23/24 12/24/24 12/25/24
06:59 06:59 06:59
Intake Total 500 / 500 655 / 655 480 / 480
Output Total 1000 / 1000 600 / 600
Balance -500 / -500 55 / 55 480 / 480
[2024-12-24 12:30] VITALS: BP 120/79
[2024-12-24 15:15] VITALS: BP 125/75
[2024-12-24] MEDS: LIPITOR 80 MG PO (18:04)
[2024-12-24 19:54] VITALS: BP 149/95
--- NOTE | 2024-12-24 20:48 | PTCARENOTE ---
assumed care of patient at the change of shift. AAOx3. denies any cp/sob. heparin and nitro gtts infusing per protocol. SR on tele 60s. R radial site-LEONARD, THU. ambulated in the room independently. reviewed medications. med list provided. reviewed
plan of care with patient and verbalized understanding. call schwarz within reach. makes needs known.
[2024-12-24 22:32] VITALS: BP 148/98
[2024-12-25] MEDS: HEPARIN 25000 UNITS/250 ML IV ×2 (02:15→17:04)
[2024-12-25 05:32] VITALS: BP 152/98
[2024-12-25 05:52] LABS: Hematocrit 40.9 % (39.0-52.0); Hemoglobin 13.8 g/dL (13.0-18.0); Mean Corp Hgb Conc. 33.7 g/dL (33.0-37.0); Mean Corpuscular Volume 92.5 fL (80.0-94.0); Nucleated Red Blood Cells % 0 % (-); Platelet Count 197 10^3/uL (130-400); Red Cell Dist. Width 12.7 % (11.5-14.5)
[2024-12-25 06:07] LABS: APTT 82.5 Sec (23.4-35.0)
[2024-12-25 06:30] LABS: Blood Urea Nitrogen 27 mg/dl (9-20); Calcium 8.7 mg/dl (8.4-10.2); Carbon Dioxide 25 mmol/L (22-30); Chloride 108 mmol/L (98-107); Estimated Creatinine Clearance 69 ml/min; Glucose 108 mg/dl (70-99); Magnesium 2.3 mg/dl (1.6-2.3); Potassium 3.8 mmol/L (3.5-5.1); Sodium 136 mmol/L (135-145); eGFR > 60.00
[2024-12-25 06:57] VITALS: BP 133/84
[2024-12-25] MEDS: COREG 6.25 MG PO ×2 (08:12→20:38)
[2024-12-25] MEDS: LOW STRENGTH ASPIRIN 81 MG PO (08:12)
[2024-12-25] MEDS: COLACE PO ×2 (08:12→20:39)
[2024-12-25] MEDS: LASIX 40 MG PO (08:12)
[2024-12-25] MEDS: NORVASC 5 MG PO (08:13)
--- NOTE | 2024-12-25 08:39 | W.PN.CARDCBS ---
Today's Communication / Plan
-
For stent on 12/26/2024
Impression / Plan
-
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
Assessment:
Presentation with SOB
Acute HF
found to have MV CAD cath 12/22
ischemic cardiomyopathy
Suspected late presentation anterior [place]
HTN emergency
History of hypertension with noncompliance
Cardiac cath 12/22/2024: Left main: Terminal left main 20 to 30% stenosis. LAD: 90% proximal stenosis, 80% mid stenosis at level of takeoff of large diagonal branch. Left circumflex: OM1 30 to 40% proximal, OM2 small caliber vessel with 2 serial
ostial proximal 70% stenosis not a PCI or CABG target. RCA: 50 to 60% atherosclerotic plaque proximal to mid, IFR -0.98. LVEDP 25 mmHg
ECHO 12/22/24: : EF 24%, hypokinesis anterior wall, anterior septum and apical segments consistent with LAD wall motion abnormality, mild to moderate AI
Plan:
Plan now is for stenting per patient on 12/26/24
Continue IV nitroglycerin and IV heparin
Progress Note - Games Manager
Subjective
Date of Service: December 25, 2024
No chest pain or shortness of breath
Objective
Labs:
12/25/24 05:33
12/25/24 05:33
Labs
Hgb 13.8 g/dL (13.0-18.0) 12/25/24 05:33
Hct 40.9 % (39.0-52.0) 12/25/24 05:33
Plt Count 197 10^3/uL (130-400) 12/25/24 05:33
PT 14.0 Sec (11.4-14.6) 12/23/24 05:04
INR 1.03 12/23/24 05:04
APTT 82.5 Sec (23.4-35.0) H 12/25/24 05:33
Sodium 136 mmol/L (135-145) 12/25/24 05:33
Potassium 3.8 mmol/L (3.5-5.1) 12/25/24 05:33
BUN 27 mg/dl (9-20) H 12/25/24 05:33
Creatinine 1.0 mg/dL (0.7-1.3) 12/25/24 05:33
Glucose 108 mg/dl (70-99) H 12/25/24 05:33
Vital Signs and I&O:
Vital Signs
Temp Pulse Resp BP Pulse Ox
98.4 F 68 20 133/84 94
12/25/24 06:57 12/25/24 08:13 12/25/24 06:57 12/25/24 08:13 12/25/24 06:57
Vital Signs
Temp Pulse Resp BP Pulse Ox
98.4 F 68 20 133/84 94
12/25/24 06:57 12/25/24 08:13 12/25/24 06:57 12/25/24 08:13 12/25/24 06:57
Intake & Output
12/23/24 12/24/24 12/25/24 12/26/24
06:59 06:59 06:59 06:59
Intake Total 500 / 500 655 / 655 930 / 930
Output Total 1000 / 1000 600 / 600
Balance -500 / -500 55 / 55 930 / 930
Physical Exam
Physical Exam
General: Well developed, well nourished in NAD.
Neck: Supple, no JVD, HJR, carotids +2 B/L, no bruits bilaterally.
Heart: Non displaced PMI, RRR, no murmurs, No S3, S4, no rubs.
Lungs: Clear to auscultation bilaterally, no wheeze, rhonchi, rubs bilaterally,
normal expiratory phase.
Extremities: No clubbing, cyanosis or edema bilaterally.
Neuro: Grossly nonfocal, awake, alert and oriented x3.
--- NOTE | 2024-12-25 08:54 | PTCARENOTE ---
received patient this am, talkative, reviewed that patient will be NPO after MN, and procedure, patient [id number] understanding. IV nitroglycerin @ 5 mcg/min and IV heparin @ 1500units/hr via right forearm. patient remains pain free. monitor shows
NSR, VSS, denies SOB.
--- NOTE | 2024-12-25 10:04 | W.PN.HOSP.TC ---
Today's Communication/Plan
-
cardiac cath tomm?
cont w/Hep/nitro gtt
npo pmn
Assessment / Plan
Assessment / Plan
General: No Apparent Distress, Comfortable and Conversant
HEENT: NormoCephalic, Moist mucous membranes and Atraumatic
Respiratory: Clear and Non Labored Respirations
Cardiac: S1/S2, Regular Rhythm and Tachycardia; No Murmur, Rub or Gallop
Breast: Deferred by me
GI: Soft, Non Tender, Non Distended and Normal Bowel Sounds; No Organomegaly
Rectal: Deferred by Provider
Genito-urinary: Deferred by me
Musculoskeletal: No Clubbing, No Cyanosis and No Edema
Skin: Warm
Neuro: Awake, AO x 3 and Nonfocal/grossly intact
Psych: Calm
#NSTEMI
# Multivessel CAD
Continue with heparin drip
Cardiac Catheter report noted.
Preop testing completed
Continue aspirin and statin and bb.
Currently on nitro infusion
CABG vs PCI. Per patient, plan for cardiac catheterization tomm to intervene on culprit lesions. NPO PMN
Await input from CTS
#Hypertension emergency
#Primary hypertension not on meds as outpatient
Currently on nitroglycerin infusion
Continue with carvedilol and Norvasc-added this admit. Uptitrate as needed
#Acute HFrEF
#Suspected ischemic cardiomyopathy
Status post IV Lasix twice daily now on 40 mg p.o. Lasix daily.
Seems to have a good response
Strict I's and O's. Daily weights.
Monitor creatinine. Requires invasive monitoring.
#Hyperlipidemia
Continue with high-dose Lipitor
[id number]
#Impaired glucose tolerance
A1c 5.5
#Pulmonary nodule
Follow-up with PCP for repeat CAT scan
#Expansion of the abdominal aorta 3.5 cm
Cardiology on board
DVT prophylaxis-heparin infusion
Full code
Anticipated Discharge: > 48 hours
Subjective/Interval History
-
Date of Service: December 25, 2024
denies any chest pain
walking around
Objective Data
-
Labs:
Laboratory Results
12/25/24
05:33
WBC 5.9
Hgb 13.8
Hct 40.9
Plt Count 197
APTT 82.5 H
Sodium 136
Potassium 3.8
Chloride 108 H
Carbon Dioxide 25
BUN 27 H
Creatinine 1.0
Glucose 108 H
Calcium 8.7
Vital Signs:
Vital Signs
Temp Pulse Resp BP Pulse Ox
98.4 F 68 20 133/84 96
12/25/24 06:57 12/25/24 08:13 12/25/24 06:57 12/25/24 08:13 12/25/24 08:30
I&O
12/24/24 12/25/24 12/26/24
06:59 06:59 06:59
Intake Total 655 / 655 930 / 930
Output Total 600 / 600
Balance 55 / 55 930 / 930
--- NOTE | 2024-12-25 10:35 | W.PN.UPDATE ---
Update Note
Progress Note Update
CARDIAC SURGERY ATTENDING:
It was my pleasure to evaluate Mr. Dean Jo. He is a very pleasant 74-year-old gentleman with significant CAD. I was evaluating him for consideration for surgical coronary revascularization. Consideration was given to ANDREA to LAD and
grafting to his major branching diagonal. Unfortunately, his LVEF is profoundly decreased. Calculating his STS risk revealed a mortality rate greater than 3% and a major morbidity rate around 11%. He would likely require periprocedural mechanical
circulatory support. Given this risk profile, we had multidisciplinary discussions regarding the potential for PCI/stenting to address his LAD lesions. My interventional cardiology colleagues believe this is a reasonable approach and I concur. I
have discussed this with the patient who is agreeable to proceed. He is tentatively scheduled for his procedure tomorrow. I will provide emergency surgical backup if needed.
Thank you.
Alber Mathews MD
[phone]
[2024-12-25 10:52] VITALS: BP 112/74
--- NOTE | 2024-12-25 10:53 | PTCARENOTE ---
noticed on monitor HR in the 30's, but immediately came back up to the 60's, patient sleeping in bed, patient stated, 'I was in a deep sleep', BP 112/74, asymptomatic.
[2024-12-25 15:52] VITALS: BP 159/95
[2024-12-25] MEDS: NITROGLYCERIN PREMIX 250 IV (17:00)
[2024-12-25] MEDS: LIPITOR 80 MG PO (17:01)
[2024-12-25 20:36] VITALS: BP 154/97
[2024-12-25 23:02] VITALS: BP 149/90
[2024-12-26] VITALS (18 sets, daily range): BP systolic 96–168; BP diastolic 58–116; BMI 27.2
[2024-12-26 05:19] LABS: Hematocrit 41.5 % (39.0-52.0); Hemoglobin 14.1 g/dL (13.0-18.0); Mean Corp Hgb Conc. 34.0 g/dL (33.0-37.0); Mean Corpuscular Volume 92.8 fL (80.0-94.0); Nucleated Red Blood Cells % 0 % (-); Platelet Count 219 10^3/uL (130-400); Red Cell Dist. Width 12.6 % (11.5-14.5)
[2024-12-26 05:28] LABS: INR 0.98; PT 13.3 Sec (11.4-14.6)
[2024-12-26 05:40] LABS: Blood Urea Nitrogen 25 mg/dl (9-20); Calcium 8.8 mg/dl (8.4-10.2); Carbon Dioxide 24 mmol/L (22-30); Chloride 107 mmol/L (98-107); Estimated Creatinine Clearance 69 ml/min; Glucose 109 mg/dl (70-99); Potassium 4.1 mmol/L (3.5-5.1); Sodium 135 mmol/L (135-145); eGFR > 60.00
[2024-12-26 06:29] LABS: APTT 111.1 Sec (23.4-35.0)
[2024-12-26] MEDS: COLACE 100 MG PO ×2 (08:07→20:20)
[2024-12-26] MEDS: NORVASC 5 MG PO (08:07)
[2024-12-26] MEDS: LOW STRENGTH ASPIRIN 81 MG PO (08:07)
[2024-12-26] MEDS: LASIX 40 MG PO (08:07)
[2024-12-26] MEDS: COREG 6.25 MG PO (08:07)
--- NOTE | 2024-12-26 08:31 | ITS.CL.CATH ---
Document Photographer - Catheterization
Cardiac Catheterization
Procedure Report:
CORONARY INTERVENTION
Date of Procedure: December 26, 2024
Referring: Dipika Rodrigez MD, [facility], [facility]
PROCEDURES:
1. Left heart catheterization.
2. Moderate sedation.
3. Successful percutaneous coronary artery intervention of hazy 95% proximal LAD stenosis with one 3.0 x 12 mm Medtronic [place] frontier drug-eluting stent, postdilated using IVUS guidance with a 3.0 x 8 mm NC balloon at 24 elver with an excellent
angiographic and IVUS based result.
4. Successful percutaneous coronary artery intervention of eccentric 80% mid LAD stenosis with 1 to 2.5 x 15 mm Medtronic [place] frontier drug-eluting stent, postdilated using IVUS guidance with a 3.0 x 8 mm NC balloon at 18 elver proximally with an
excellent angiographic and IVUS based result.
5. Intravascular ultrasound (IVUS)
INDICATION: Dean is a 74-year-old gentleman with untreated hypertension, last medical care obtained prior to [facility], history of relation therapy for hypertension which was stopped in 2019 who presents with 1 week history of cough and associated
shortness of breath as well as orthopnea found to have concern for recent anterior OH with Q waves noted precordially concerning for a late presenting OH. He never had any chest discomfort and does not have any currently. He feels like his
breathing is comfortable on room air. He was also found to be significantly hypertensive on presentation with blood pressures over 200s systolic and 100s diastolic. Troponin is 0.6. He was found to have severe stenosis in the proximal and mid LAD.
Heart team approach was taken and CT surgery consult was obtained. Given his mortality perioperatively was thought to be greater than 3% given new severe cardiomyopathy, in a shared decision making fashion decision was to pursue percutaneous
coronary artery intervention of proximal and mid LAD and therefore patient presents back to the heart catheterization lab.
ACCESS: Right radial artery, 6Fr. sheath, under US guidance.
HEMODYNAMICS : (mmHg):
AO (s/d) : 138/77
LVEDP : 22. LVEDP was checked in the setting of severe LV dysfunction, LVEF of 20 to 25% to help with post procedure fluid management and optimization of diuretics
No significant gradient across the aortic valve to suggest aortic stenosis.
CORONARY FINDINGS
Dominance: Right
Left Main Trunk (LMT): Large caliber vessel that gives rise to the LAD and LCx branches. Terminal left main has 20 to 30% stenosis
Left Anterior Descending Artery (LAD): Large caliber vessel that gives off 1 major large caliber arborizing diagonal branchas it courses along the anterior inter-ventricular groove before wrapping around the cardiac apex. There is a 90% hazy
stenosis in the proximal portion and a 80% stenosis in the midportion just distal to the takeoff of a large caliber branching diagonal. Proximal and Mid LAD lesions were intervened upon as noted below.
Left Circumflex Artery (LCx): Medium caliber vessel that gives off 2 major obtuse marginal (OM) branches as it courses along the atrio-ventricular (AV) groove. OM1 has 30 to 40% proximal stenosis. OM 2 is a small caliber vessel with 2 serial
ostial and proximal 70% stenosis however this is not a PCI or a CABG target.
Right Coronary Artery (RCA): Not selective shot on this study.
CORONARY INTERVENTION: The left coronary artery was selectively engaged using a 6 [place] EBU 3.75 guide catheter. Additional heparin was given to maintain a therapeutic ACT throughout the case. A 190 cm 0.014 run-through wire was carefully
navigated across the proximal and mid LAD stenosis into the distal vessel. The lesions were predilated using a 2.5 x 12 mm semicompliant balloon with full expansion proximally and in the mid vessel. The mid LAD was subsequently stented using a 2.5
x 15 mm Medtronic [place] frontier drug-eluting stent, postdilated using IVUS guidance with a 3.0 x 8 mm NC balloon at 18 elver proximally. The proximal LAD was stented using a 3.0 x 12 mm Medtronic [place] drug-eluting stent, postdilated using IVUS
guidance with a 3.0 x 8 mm NC balloon at 24 elver, both with an excellent angiographic and IVUS based result. The patient tolerated the procedure well with no acute complications. He had been loaded with 180 mg of Brilinta at this morning prior to
the procedure.
SEDATION: 67 minutes of procedural sedation was utilized. IV Midazolam and IV Fentanyl were administered. An independent medical billing specialist was present to assist with and help manage the patient's level of consciousness and physiologic status.
RADIATION SUMMARY: Fluoro Time (min):13.5 , Dose (mGy): 673.52, DAP (Gy.cm2) : 39.18
Closure Device: There were no immediate intra-procedural complications. The sheath was pulled in the cardiac cath technician and a vascular-band applied to the right wrist for radial artery hemostasis using the patent hemostasis technique.
CONCLUSIONS
1. Successful percutaneous coronary artery intervention of hazy 95% proximal LAD stenosis with one 3.0 x 12 mm Medtronic [place] frontier drug-eluting stent, postdilated using IVUS guidance with a 3.0 x 8 mm NC balloon at 24 elver with an excellent
angiographic and IVUS based result.
2. Successful percutaneous coronary artery intervention of eccentric 80% mid LAD stenosis with 1 to 2.5 x 15 mm Medtronic [place] frontier drug-eluting stent, postdilated using IVUS guidance with a 3.0 x 8 mm NC balloon at 18 elver proximally with an
excellent angiographic and IVUS based result.
3. Elevated LVEDP at 22mmHG
RECOMMENDATIONS
1. Wean radial band per protocol. Monitor right hand perfusion and for bleeding from the radial site following removal of the vascular-band following trans-radial access.
2. Continue aggressive GDMT for ischemic CM and risk factor modification for secondary CAD prevention.
3. Continue ASA 81 mg daily for life.
4. Continue Ticagrelor for at least 12 months of uninterrupted dual anti-platelet therapy given drug-eluting stent (BALDO) implantation to mitigate the risk of stent thrombosis. This is not to be stopped for any reason without the guidance of a
burnt lime drawer.
5. Hydrate with normal saline to mitigate the risk of contrast-induced acute kidney injury.
6. Referral for outpatient cardiac rehab.
7. Reassess echo at 3 months to assess LVEF recovery versus need for ICD if LVEF persists < 35%
Dipika Rodrigez MD, FACC, [facility]
--- NOTE | 2024-12-26 08:32 | W.PN.HOSP.TC ---
Today's Communication/Plan
-
see a/p
Assessment / Plan
Assessment / Plan
General: No acute distress, appears comfortable at this time
HEENT: NormoCephalic, Moist mucous membranes and Atraumatic
Respiratory: Clear and Non Labored Respirations
Cardiac: S1/S2, Regular Rhythm and Tachycardia; No Murmur, Rub or Gallop
GI: Soft, Non Tender, Non Distended and Normal Bowel Sounds; No Organomegaly
Musculoskeletal: No Clubbing, No Cyanosis and No Edema
Skin: Warm
Neuro: AOx3 conversant coherent
Psych: Calm
74M hx HTN here for NSTEMI multivessel dz HFrEF.
#NSTEMI
# Multivessel CAD
Hep gtt completed
nitro gtt completed
Preop testing completed
Continue DAPT (aspirin Brilinta) statin and bb as per Cardio
CTS eval appreciated
Cardiac Catheter reports noted, 12/26 2 BALDO placed (proximal and mid LAD)
#Hypertension emergency
#Primary hypertension not on meds as outpatient
nitro gtt completed
Continue with carvedilol-added this admit. Up titrate as needed
started on Norvasc later switched to Entresto (more effective treatment HF)
#Acute HFrEF
#Suspected ischemic cardiomyopathy
Status post IV Lasix twice daily now on 40 mg Lasix daily.
Seems to have a good response
Strict I's and O's. Daily weights.
Monitor creatinine. Requires invasive monitoring.
#Hyperlipidemia
Continue with high-dose Lipitor
LDL 139
#[correction to prior documentation]
A1c 5.5 wnl, non-diabetic
#Pulmonary nodule
Follow-up with PCP for repeat CAT scan
#Expansion of the abdominal aorta 3.5 cm
Cardiology on board
DVT prophylaxis- SCD
Full code
Discussed with patient and patient's Tia
I spent a total of 45 minutes with the patient or on the floor. More than 50% of this time involved counseling and coordination of care.
Anticipated Discharge: 24 - 48 hours
Subjective/Interval History
-
Date of Service: December 26, 2024
No acute distress, resting comfortably in bed. Some lightheadedness flushing noted post cath, symptoms since resolved with rest and IVF bolus. Overall reports feeling well, chest pain free and stable resp status on room air. Tia present
during evaluation.
Objective Data
-
Labs:
Laboratory Results
12/26/24 12/26/24 12/26/24
05:07 06:00 13:00
WBC 5.6
Hgb 14.1
Hct 41.5
Plt Count 219
PT 13.3
INR 0.98
APTT 111.1 H Cancelled Pending
Sodium 135
Potassium 4.1
Chloride 107
Carbon Dioxide 24
BUN 25 H
Creatinine 1.0
Glucose 109 H
Calcium 8.8
Vital Signs:
Vital Signs
Temp Pulse Resp BP Pulse Ox
97.7 F 66 14 141/88 95
12/26/24 07:51 12/26/24 07:51 12/26/24 07:51 12/26/24 05:01 12/26/24 07:51
I&O
12/25/24 12/26/24 12/27/24
06:59 06:59 06:59
Intake Total 930 / 930 186 / 186
Output Total 200 / 200 200 / 200
Balance 930 / 930 -14 / -14 -200 / -200
--- NOTE | 2024-12-26 09:49 | PTCARENOTE ---
Report given to the analyst microbiology lab.
[2024-12-26 10:45] LABS: ACT-LR - POC 326 Seconds (116-155)
[2024-12-26 11:07] LABS: ACT-LR - POC 261 Seconds (116-155)
[2024-12-26 11:16] LABS: ACT-LR - POC 300 Seconds (116-155)
--- NOTE | 2024-12-26 11:53 | PTCARENOTE ---
Patient received from cardiac cath lab radiology technologist. AO x3. SB HR 47,BP 109/61, POX 95% on room air. Right radial band in place with 15 cc of air.
--- NOTE | 2024-12-26 12:07 | PTCARENOTE ---
Patient feeling lightheaded, diaphoretic, flushed feeling, BP 109/61-129/83, HR 44-47, EKG done. Carmenza Castillo notified. Patient laying flat in bed, IVF infusing. Will hold Coreg dose tonight. Bedrest maintained
--- NOTE | 2024-12-26 14:10 | PTCARENOTE ---
Lightheadedness resolved. Patient stood to urinate in urinal. BP 150/76, HR 68, POX 97% on room air. Eating lunch, at bedside
--- NOTE | 2024-12-26 16:45 | PTCARENOTE ---
Band removed at 1615. Mild bruising, precautions reviewed
--- NOTE | 2024-12-26 17:25 | CM ---
priced meds with pts [facility]- he still owes his $590 deductible.
josep ( tier 3)- first month 429, entresto- 605, farxiga- 554, jardiance - [phone]--once pt pays his $2000 OOP for the year his copays are zero. pt is aware and is agreeable to the cost.
[2024-12-26] MEDS: LIPITOR 80 MG PO (17:36)
[2024-12-26] MEDS: BRILINTA 90 MG PO (20:20)
--- NOTE | 2024-12-26 23:13 | PTCARENOTE ---
Patient ambulating self in room. Denies any dizziness. Tele monitor shows SB/NSR w/ occasional PACs. VSS. Denies any pain or SOB. Right radial site dressing intact w/ some ecchymosis near site. Site soft, no hematoma present at this time. Educated
pt about activity restrictions, and he verbalized understanding. Call schwarz within reach.
[2024-12-27 04:01] VITALS: BMI 26.9
[2024-12-27 04:03] VITALS: BP 151/93
[2024-12-27 04:33] LABS: Hematocrit 42.3 % (39.0-52.0); Hemoglobin 14.5 g/dL (13.0-18.0); Mean Corp Hgb Conc. 34.3 g/dL (33.0-37.0); Mean Corpuscular Volume 92.0 fL (80.0-94.0); Platelet Count 214 10^3/uL (130-400); Red Cell Dist. Width 12.6 % (11.5-14.5)
[2024-12-27 05:01] LABS: Blood Urea Nitrogen 22 mg/dl (9-20); Calcium 9.1 mg/dl (8.4-10.2); Carbon Dioxide 24 mmol/L (22-30); Chloride 105 mmol/L (98-107); Estimated Creatinine Clearance 69 ml/min; Glucose 109 mg/dl (70-99); Magnesium 2.2 mg/dl (1.6-2.3); Potassium 3.9 mmol/L (3.5-5.1); Sodium 137 mmol/L (135-145); eGFR > 60.00
[2024-12-27 07:10] VITALS: BP 151/88
[2024-12-27] MEDS: COLACE PO (08:57)
[2024-12-27] MEDS: BRILINTA 90 MG PO ×2 (08:57→19:48)
[2024-12-27] MEDS: COREG 12.5 MG PO (08:57)
[2024-12-27] MEDS: LOW STRENGTH ASPIRIN 81 MG PO (08:57)
[2024-12-27] MEDS: LASIX 40 MG IV (08:58)
--- NOTE | 2024-12-27 08:58 | W.PN.HOSP.TC ---
Today's Communication/Plan
-
see a/p
Assessment / Plan
Assessment / Plan
Physical Exam
General: No acute distress, appears comfortable at this time
HEENT: NormoCephalic, Moist mucous membranes and Atraumatic
Respiratory: Clear and Non Labored Respirations
Cardiac: S1/S2, Regular Rhythm and Tachycardia; No Murmur, Rub or Gallop
GI: Soft, Non Tender, Non Distended and Normal Bowel Sounds; No Organomegaly
Musculoskeletal: No Clubbing, No Cyanosis and No Edema
Skin: Warm
Neuro: AOx3 conversant coherent
Psych: Calm
74M hx HTN here for NSTEMI multivessel dz HFrEF.
#NSTEMI
# Multivessel CAD
Hep gtt completed
nitro gtt completed
Preop testing completed
Continue DAPT (aspirin Brilinta) statin and bb as per Cardio
CTS eval appreciated
Cardiac Catheter reports noted, 12/26 2 BALDO placed (proximal and mid LAD)
#Hypertension emergency
#Primary hypertension not on meds as outpatient
nitro gtt completed
Continue with carvedilol-added this admit. Titrate as necessary
started on Norvasc later switched to Entresto (more effective treatment HF) has not received yet d/t symptomatic hypotension/low pressures
#Acute HFrEF
#Suspected ischemic cardiomyopathy
Status post IV Lasix twice daily now on 40 mg Lasix daily.
Seems to have a good response
Strict I's and O's. Daily weights.
Monitor Renal function
#Hyperlipidemia
Continue with high-dose Lipitor
LDL 139
#Pulmonary nodule
Follow-up with PCP for repeat CAT scan
#Expansion of the abdominal aorta 3.5 cm
Cardiology on board
DVT prophylaxis- SCD
Full code
Discussed with patient and patient's Tia
I spent a total of 45 minutes with the patient or on the floor. More than 50% of this time involved counseling and coordination of care.
Anticipated Discharge: Within 24 hours
Subjective/Interval History
-
Date of Service: December 27, 2024
No acute distress, sitting up comfortably in chair. Reports significant lightheadedness in the morning following morning medications, since resolved. Overall reports feeling well. Tia present during evaluation.
Objective Data
-
Labs:
Laboratory Results
12/26/24 12/27/24
23:16 04:12
WBC 8.0
Hgb 14.5
Hct 42.3
Plt Count 214
APTT Cancelled
Sodium 137
Potassium 3.9
Chloride 105
Carbon Dioxide 24
BUN 22 H
Creatinine 1.0
Glucose 109 H
Calcium 9.1
Vital Signs:
Vital Signs
Temp Pulse Resp BP Pulse Ox
98.4 F 72 13 151/88 95
12/27/24 07:08 12/27/24 08:00 12/27/24 07:08 12/27/24 07:10 12/27/24 07:08
I&O
12/26/24 12/27/24 12/28/24
06:59 06:59 06:59
Intake Total 186 / 186 860 / 860
Output Total 200 / 200 1625 / 1625
Balance -14 / -14 -765 / -765
[2024-12-27 11:09] VITALS: BP 99/61
--- NOTE | 2024-12-27 11:30 | W.PN.CARDCBS ---
Addendum entered and electronically signed by Dipika Rodrigez MD 12/27/24 18:46:
I saw and examined the patient.
The Station Master's note was reviewed and I agree with the note.
Comment: Overall patient is doing better but did have another episode this morning where he got sudden onset of lightheadedness in the setting of low normal blood pressures. No issues at the right radial access site. No chest pain or shortness of
breath. Overall he tells me his breathing is significantly better.
Vital signs and lab work reviewed. On exam patient is well-appearing, out of bed in a chair, regular rate, normal S1 and S2, awake, alert and oriented x 3, right radial access site without evidence of hematoma or bruit, abdomen is soft, nontender,
nondistended with active bowel sounds, lungs are clear to auscultation bilaterally, warm extremities without significant edema.
Recommendations:
1. Plan to transition to p.o. Lasix starting tomorrow to maintain euvolemia.
2. Continue with optimization of GDMT for ischemic cardiomyopathy: Given 2 episodes of low normal blood pressures and associated lightheadedness plan to reduce carvedilol back to 6.25 mg twice daily with close monitoring on telemetry. We did not
note as many episodes of bradycardia. Amlodipine on hold and depending on how blood pressures do tonight we will consider adding low-dose losartan tomorrow morning instead of Entresto.
3. Status post LAD PCI in the proximal and midportion. Continue dual endplate therapy with daily baby aspirin, Brilinta, high intensity statin.
4. Will plan to reassess LVEF by echocardiogram in 3 months on GDMT.
5. Outpatient cardiac rehab and educated in regards to importance of a heart healthy diet with focus on a high-fiber Mediterranean type diet and staying physically active to optimize his cardiovascular risk and aggressive management of secondary
cardiovascular risk factors.
6. Anticipate discharge in the next 24 hours.
Dipika Rodrigez MD, [facility], [facility]
Original Note:
Today's Communication / Plan
-
Reduce Coreg to 6.25 mg twice daily
Follow blood pressures. Consider addition of low-dose losartan as able
Continue IV Lasix today, transition to p.o. for AM
Status post LAD PCI x 2. Continue aspirin, Brilinta, high intensity statin therapy
Cardiac rehab
Will need echo in 3 months to reassess EF
Hopeful for DC in a.m.
Impression / Plan
-
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
Assessment:
Presentation with SOB
Acute HFrEF
Ischemic cardiomyopathy, EF 24%
Late presentation anterior CT, found to have MV CAD cath 12/22, s/p LAD PCI x2 12/26/24
HTN emergency
History of hypertension with noncompliance
Cardiac cath 12/22/2024: Left main: Terminal left main 20 to 30% stenosis. LAD: 90% proximal stenosis, 80% mid stenosis at level of takeoff of large diagonal branch. Left circumflex: OM1 30 to 40% proximal, OM2 small caliber vessel with 2 serial
ostial proximal 70% stenosis not a PCI or CABG target. RCA: 50 to 60% atherosclerotic plaque proximal to mid, IFR -0.98. LVEDP 25 mmHg
ECHO 12/22/24: : EF 24%, hypokinesis anterior wall, anterior septum and apical segments consistent with LAD wall motion abnormality, mild to moderate AI
Plan:
- Patient presented with shortness of breath
- Being diuresed for acute heart failure with newly reduced EF. LVEDP was 22 by cath yesterday. Continue IV Lasix 40 mg daily today with plan to transition to po in AM. Was not on diuretic prior to admission
-Admitted for suspected late presentation anterior CT with peak troponin of 0.798. Status post cardiac catheterization 12/26/2024 resulting in LAD PCI x 2
-Continue aspirin, Brilinta. hgb stable
-By echocardiogram, EF 24%. He is currently on Coreg 12.5 mg twice daily, and with this had some symptoms of symptomatic hypotension. Had hypertensive emergency on arrival. Blood pressures appear to be labile. Will decrease Coreg to 6.25 mg
twice daily. Will consider addition of REBECCA/ARB/arni/Aldactone/SGLT2 inhibitor as able
-In sinus rhythm/sinus bradycardia on review of telemetry overnight
-LDL 139. On high intensity lipid-lowering therapy
-Will need echocardiogram in 3-month martha post revascularization to reassess EF and determine candidacy for ICD
-Ambulate. Cardiac rehab
-Hopeful for DC in AM
Progress Note - Instructor Industrial Design
Subjective
Date of Service: December 27, 2024
Reports some fatigue, dizziness
Objective
Labs:
12/27/24 04:12
12/27/24 04:12
Labs
Hgb 14.5 g/dL (13.0-18.0) 12/27/24 04:12
Hct 42.3 % (39.0-52.0) 12/27/24 04:12
Plt Count 214 10^3/uL (130-400) 12/27/24 04:12
PT 13.3 Sec (11.4-14.6) 12/26/24 05:07
INR 0.98 12/26/24 05:07
APTT Cancelled 12/26/24 23:16
Sodium 137 mmol/L (135-145) 12/27/24 04:12
Potassium 3.9 mmol/L (3.5-5.1) 12/27/24 04:12
BUN 22 mg/dl (9-20) H 12/27/24 04:12
Creatinine 1.0 mg/dL (0.7-1.3) 12/27/24 04:12
Glucose 109 mg/dl (70-99) H 12/27/24 04:12
Vital Signs and I&O:
Vital Signs
Temp Pulse Resp BP Pulse Ox
97.8 F 54 13 151/88 97
12/27/24 11:06 12/27/24 11:06 12/27/24 11:06 12/27/24 08:57 12/27/24 11:06
Vital Signs
Temp Pulse Resp BP Pulse Ox
97.8 F 54 13 151/88 97
12/27/24 11:06 12/27/24 11:06 12/27/24 11:06 12/27/24 08:57 12/27/24 11:06
Intake & Output
12/25/24 12/26/24 12/27/24 12/28/24
07:59 07:59 07:59 07:59
Intake Total 930 / 930 186 / 186 860 / 860
Output Total 200 / 200 1625 / 1625
Balance 930 / 930 -14 / -14 -765 / -765
Physical Exam
Physical Exam
GEN: No distress, awake, alert, oriented x3
HEENT: supple, anicteric, mmm, EOMI
LUNGS: CTA bilaterally, no wheezes/rales
CV: Reg, S1/S2, no murmur
ABD: soft, BS+, NT/ND
EXT: No cyanosis, clubbing. 1+ edema of bilateral lower extremity
NEURO: Gross non-focal
SKIN: Warm, pink, dry. No rash. Right wrist site with mild tenderness to palpation, mild ecchymoses, dressing clean dry and intact
[2024-12-27 15:03] VITALS: BP 129/71
--- NOTE | 2024-12-27 15:42 | CM ---
Reviewed chart. Met with and Mrs. Jo to review discharge plans. He states he is feeling better and maybe able to go home soon. He was inquiring if he can have a dietary consult prior to discharge. TT attending. We reviewed VNA
Services. At this time he does not feel he will need VNA Services. Prior to admission he resides with his spouse in a two story home with two steps to enter. Prior to admission he was independent with ambulation and adls. He does not have any DME
in the home. He has a prescription plan and [facility]. Medical work-up in progress. The discharge plam is to return home with his spouse when medically stable.
[2024-12-27] MEDS: LIPITOR 80 MG PO (18:09)
[2024-12-27 19:24] VITALS: BP 151/81
[2024-12-27] MEDS: COREG 6.25 MG PO (19:48)
[2024-12-27] MEDS: COLACE 100 MG PO (19:48)
[2024-12-27 22:35] VITALS: BP 127/77
--- NOTE | 2024-12-28 00:22 | PTCARENOTE ---
Pt rec'd at change of shift with family at bedside. right radial site faustino ecchymotic.
Sinus on telemetry. No c/o dizziness after taking lower dose of Coreg just 'normal tiredness from a beta jack'
[2024-12-28 04:36] VITALS: BP 143/80
[2024-12-28 05:06] LABS: Hematocrit 40.7 % (39.0-52.0); Hemoglobin 14.0 g/dL (13.0-18.0); Mean Corp Hgb Conc. 34.4 g/dL (33.0-37.0); Mean Corpuscular Volume 92.7 fL (80.0-94.0); Nucleated Red Blood Cells % 0 % (-); Platelet Count 210 10^3/uL (130-400); Red Cell Dist. Width 12.8 % (11.5-14.5)
[2024-12-28 05:28] LABS: Blood Urea Nitrogen 23 mg/dl (9-20); Calcium 9.2 mg/dl (8.4-10.2); Carbon Dioxide 25 mmol/L (22-30); Chloride 105 mmol/L (98-107); Estimated Creatinine Clearance 69 ml/min; Glucose 110 mg/dl (70-99); Potassium 4.0 mmol/L (3.5-5.1); Sodium 137 mmol/L (135-145); eGFR > 60.00
[2024-12-28 07:37] VITALS: BP 146/84
--- NOTE | 2024-12-28 07:58 | W.PN.HOSP.TC ---
Today's Communication/Plan
-
discharge
Assessment / Plan
Assessment / Plan
Physical Exam
General: No acute distress, appears comfortable at this time
HEENT: NormoCephalic, Moist mucous membranes and Atraumatic
Respiratory: Clear and Non Labored Respirations
Cardiac: S1/S2, Regular Rhythm and Sinus Tha; No Murmur, Rub or Gallop
GI: Soft, Non Tender, Non Distended and Normal Bowel Sounds; No Organomegaly
Musculoskeletal: No Clubbing, No Cyanosis and No Edema
Skin: Warm
Neuro: AOx3 conversant coherent
Psych: Calm
74M hx HTN here for NSTEMI multivessel dz HFrEF.
#NSTEMI
# Multivessel CAD
Hep gtt completed
nitro gtt completed
Preop testing completed
Continue DAPT (aspirin Brilinta) statin and bb as per Cardio
CTS eval appreciated
Cardiac Catheter reports noted, 12/26 2 BALDO placed (proximal and mid LAD)
#Hypertension emergency
#Primary hypertension not on meds as outpatient
nitro gtt completed
Continue with carvedilol-added this admit. Titrated to 6.25 mg BID
started on Norvasc later switched to Entresto (more effective treatment HF) has not received yet d/t symptomatic hypotension/low pressures
addition Entresto/ARB on hold for now, outpt follow up with Cardiology to determine when safe to start
#Acute HFrEF
#Suspected ischemic cardiomyopathy
treated with IV Lasix twice daily tapered to daily, transitioned to PO
Coreg as above
Entresto/arb on hold as above
#Hyperlipidemia
Continue with high-dose Lipitor
LDL 139
#Pulmonary nodule
Follow-up with PCP for repeat CAT scan
#Expansion of the abdominal aorta 3.5 cm
Cardiology on board
DVT prophylaxis- SCD
Full code
Medically stable for discharge home with outpatient follow up recommendations.
Discussed with patient and patient's Tia
Total Time Preparing Discharge ___40____ minutes including examination of the patient, summary of the hospital stay, instructions for continuing care to all relevant caregivers; and preparation of discharge records, prescriptions, and referral
forms if necessary.
Anticipated Discharge: Today
Subjective/Interval History
-
Date of Service: December 28, 2024
Seen and examined at bedside in no acute distress sitting up comfortably in bed. Overall reports feeling well. Denies new acute issues. Looking forward to going home.
Objective Data
-
Labs:
Laboratory Results
12/28/24
04:40
WBC 7.4
Hgb 14.0
Hct 40.7
Plt Count 210
Sodium 137
Potassium 4.0
Chloride 105
Carbon Dioxide 25
BUN 23 H
Creatinine 1.0
Glucose 110 H
Calcium 9.2
Vital Signs:
Vital Signs
Temp Pulse Resp BP Pulse Ox
98.3 F 72 20 127/77 95
12/28/24 07:46 12/28/24 00:00 12/27/24 22:35 12/27/24 22:35 12/28/24 07:46
I&O
12/27/24 12/28/24 12/29/24
06:59 06:59 06:59
Intake Total 860 / 860 960 / 960
Output Total 1625 / 1625
Balance -765 / -765 960 / 960
[2024-12-28] MEDS: BRILINTA 90 MG PO (09:36)
[2024-12-28] MEDS: COREG 6.25 MG PO (09:36)
[2024-12-28] MEDS: COLACE 100 MG PO (09:37)
[2024-12-28] MEDS: LOW STRENGTH ASPIRIN 81 MG PO (09:37)
--- NOTE | 2024-12-28 10:04 | W.PN.CARDCBS ---
Addendum entered and electronically signed by Dipika Rodrigez MD 12/28/24 17:39:
I saw and examined the patient.
The High Speed Warper Tender's note was reviewed and I agree with the note.
Comment: Patient is overall doing better and he does not have any new complaints today or overnight. No chest discomfort and his breathing is significantly better than when he present
Vital signs and lab work reviewed. On exam patient is well-appearing, out of bed in a chair, regular rate, normal S1 and S2, awake, alert and oriented x 3, right radial access site without evidence of hematoma or bruit, abdomen is soft, nontender,
nondistended with active bowel sounds, lungs are clear to auscultation bilaterally, warm extremities without significant edema.
Recommendations:
1. He is doing well from a heart rate as well as blood pressure standpoint on current dose of carvedilol at 6.25 mg twice daily. We looked into adding Farxiga to optimize GDMT in the setting of heart failure with reduced ejection fraction and
ischemic cardiomyopathy. Given it is affordable to the patient we initiated this.
2. Given recent LAD PCI, continue DAPT therapy with daily baby aspirin and Brilinta along with high intensity statin.
3. With ischemic cardiomyopathy, continue daily Lasix p.o. 40 mg to maintain euvolemia
4. Outpatient cardiac rehab to start mid January.
5. Outpatient cardiology follow-up will be set up.
6. Patient educated in regards to importance of a low-sodium diet, daily weight checks and focusing on a high-fiber Mediterranean type diet
Stable for discharge from a cardiac standpoint.
Dipika Rodrigez MD, FAC, [facility]
Original Note:
Today's Communication / Plan
-
continue coreg
consider addition of farxiga
continue asa, brilinta, lipitor
po lasix 40mg daily
BMP in 1 week
cardiac rehab
OP cardiac follow up arranged
ok for DC
Impression / Plan
-
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
Assessment:
Presentation with SOB
Acute HFrEF
Ischemic cardiomyopathy, EF 24%
Late presentation anterior PA, found to have MV CAD cath 12/22, s/p LAD PCI x2 12/26/24
HTN emergency
History of hypertension with noncompliance
Cardiac cath 12/22/2024: Left main: Terminal left main 20 to 30% stenosis. LAD: 90% proximal stenosis, 80% mid stenosis at level of takeoff of large diagonal branch. Left circumflex: OM1 30 to 40% proximal, OM2 small caliber vessel with 2 serial
ostial proximal 70% stenosis not a PCI or CABG target. RCA: 50 to 60% atherosclerotic plaque proximal to mid, IFR -0.98. LVEDP 25 mmHg
ECHO 12/22/24: : EF 24%, hypokinesis anterior wall, anterior septum and apical segments consistent with LAD wall motion abnormality, mild to moderate AI
Plan:
- Patient presented with shortness of breath
- Being diuresed for acute heart failure with newly reduced EF. LVEDP was 22 by cath 12/27. Weight downtrending if accurate. Will transition to p.o. Lasix 40 mg daily to continue upon discharge. Patient was not on diuretic prior to admission
-Admitted for suspected late presentation anterior PA with peak troponin of 0.798. Status post cardiac catheterization 12/26/2024 resulting in LAD PCI x 2
-Continue aspirin, Brilinta. hgb stable
-By echocardiogram, EF 24%. Continue Coreg to 6.25 mg twice daily, no dizziness overnight, ambulatory in halls without issue. Addition of REBECCA/ARB/Arni/Aldactone presently limited by hypotension. Would consider addition of SGLT2 as able
-In sinus rhythm on review of telemetry overnight
-LDL 139. now on high intensity lipid-lowering therapy
-Will need echocardiogram in 3-month martha post revascularization to reassess EF and determine candidacy for ICD
-Cardiac rehab
-Outpatient cardiac follow-up arranged
-Plan for discharge to home today
-Discussed with nursing. Discussed with hospitalist via TT
Progress Note - Surgical Coder
Subjective
Date of Service: December 28, 2024
Feeling well. No complaints
Objective
Labs:
12/28/24 04:40
12/28/24 04:40
Labs
Hgb 14.0 g/dL (13.0-18.0) 12/28/24 04:40
Hct 40.7 % (39.0-52.0) 12/28/24 04:40
Plt Count 210 10^3/uL (130-400) 12/28/24 04:40
PT 13.3 Sec (11.4-14.6) 12/26/24 05:07
INR 0.98 12/26/24 05:07
APTT Cancelled 12/26/24 23:16
Sodium 137 mmol/L (135-145) 12/28/24 04:40
Potassium 4.0 mmol/L (3.5-5.1) 12/28/24 04:40
BUN 23 mg/dl (9-20) H 12/28/24 04:40
Creatinine 1.0 mg/dL (0.7-1.3) 12/28/24 04:40
Glucose 110 mg/dl (70-99) H 12/28/24 04:40
Vital Signs and I&O:
Vital Signs
Temp Pulse Resp BP Pulse Ox
98.3 F 61 20 146/84 95
12/28/24 07:46 12/28/24 09:00 12/27/24 22:35 12/28/24 07:37 12/28/24 09:39
Vital Signs
Temp Pulse Resp BP Pulse Ox
98.3 F 61 20 146/84 95
12/28/24 07:46 12/28/24 09:00 12/27/24 22:35 12/28/24 07:37 12/28/24 09:39
Intake & Output
12/26/24 12/27/24 12/28/24 12/29/24
07:59 07:59 07:59 07:59
Intake Total 186 / 186 860 / 860 960 / 960
Output Total 200 / 200 1625 / 1625
Balance -14 / -14 -765 / -765 960 / 960
Physical Exam
Physical Exam
GEN: No distress, awake, alert, oriented x3
HEENT: supple, anicteric, mmm, EOMI
LUNGS: CTA bilaterally, no wheezes/rales
CV: Reg, S1/S2, no murmur
ABD: soft, BS+, NT/ND
EXT: No cyanosis, clubbing, edema.
NEURO: Gross non-focal
SKIN: Warm, pink, dry. No rash. Right wrist site c/d/i
[2024-12-28] MEDS: LASIX 40 MG PO (10:26)
[2024-12-28] MEDS: LASIX IV (10:26)
[2024-12-28] MEDS: FARXIGA 10 MG PO (11:49)
[2024-12-28 12:04] VITALS: BP 120/69
--- NOTE | 2024-12-28 12:50 | CM ---
Reviewed chart. Met with and Mrs. Jo to review discharge plans. He states he is feeling well and maybe able to go home soon. Prior to admission he resides with his spouse in a two story home with two steps to enter. Prior to admission
he was independent with ambulation and adls. He does not have any DME in the home. He has a prescription plan and uses [facility]. Medical work-up in progress. The discharge plan is to return home with his spouse when medically stable.
--- NOTE | 2024-12-28 13:58 | W.DCSUMMARY ---
Discharge Summary
Discharge Data
Date of Admission: 12/21/24
Date of Discharge: 12/28/24
-
Pending Results: No
Discharge Plan
-
Patient Disposition: Home (Routine Discharge)
Discharge Diagnosis/Procedures: Myocardial Infarction
Angioplasty and stent x2 to Left Anterior Descending artery
Heart Failure with Reduced Ejection Fraction
Pulmonary nodules: 3 mm solid left upper lobe nodule. 2 mm solid nodule in the Lingula.
Abdominal Aortic Aneurysm 3.5 cm
Condition: Fair
Diet: Low Cholesterol, 2 Gram Sodium and Restrict fluids to 48 oz
Activity: As tolerated
Driving Restrictions: As prior to admission
Blood Work: BMP/proBNP in 1 week
Others Tests: Repeat CT chest with primary care provider in 1 year to follow up on small pulmonary nodules 3 mm solid left upper lobe nodule. 2 mm solid nodule in the Lingula.
Follow up with primary care provider for CT angiogram abdomen/pelvis in 2-4 weeks of discharge for follow up Abdominal Aortic Aneurysm.
Other Services: Cardiac Rehab
Specialty Instructions: Weigh Daily- Call MD for wt gain/loss 3 lbs overnight/5 lbs in 1 week
Activity Restrictions/Additional Instructions:
Keep your appointment with Cardiology. Follow up with primary care provider in 1 week of discharge.
Aspirin and Brilinta dual antiplatelet prescribed for coronary artery disease recent stents placed.
Atorvastatin prescribed for risk reduction acute coronary syndrome.
Coreg, Farxiga, and Lasix prescribed for treatment heart failure.
Please take medications as prescribed/recommended and follow up with primary care provider Cardiology and/or other healthcare provider involved in your care for refills and/or further adjustment to your medication regimen as necessary.
Instructions: *DCA Heart Failure Instructions
Stand Alone Forms: DC Instructions- Cath/EP Lab
Referrals:
[facility]. Cardiac Rehab [Outside] - 01/24/25 8:30 am
Referral Note: Cardiac Rehab Orientation appointment is on 01/24 at 8:30 am.
The Cardiac Rehab gym is located on the first floor of the [facility].
Chela Gonsalez PA-C [Specified Professional Personl, Cardiology] - 01/02/25 1:40 pm
Referral Note: You have a cardiology follow up appointment at the [facility] office. Please call with questions.
Zay Bauman DO [Family Provider, [facility]] - in one week
Prescriptions:
New
furosemide 40 mg Tablet
40 mg PO DAILY Qty: 30 0RF
atorvastatin 80 mg Tablet
80 mg PO QPM Qty: 30 0RF
carvedilol 6.25 mg Tablet
6.25 mg PO BID Qty: 60 0RF
aspirin 81 mg Tablet,Chewable
81 mg PO DAILY Qty: 30 0RF
ticagrelor [Brilinta] 90 mg tablet
90 mg PO BID Qty: 60 0RF
dapagliflozin propanediol 10 mg Tablet
10 mg PO DAILY Qty: 30 0RF
Held
ashwagandha extract 120 mg Capsule
120 mg PO DAILY
Hold Instructions: hold off for now as you are on new medications that may potentially interact. Follow up with primary care provider or other healthcare provider involved in your care for clearance to resume
Discharge Orders:
Discharge Patient (As Directed); Ordered 12/28/24
Ordered By: Charlene Castano
Care Plan Goals
Care Plan Goals:
Problem: Readiness for enhanced knowledge related to diagnosis and treatment plan
Goal: Understand your diagnosis and treatment plan needs, including medications if applicable.
Instructions: Know your diagnosis, underlying causes and treatment plan options, including medications if applicable. Consult with your health care team to learn about your diagnosis and treatment plan, including medications if applicable.
Discharge Date and Time
Print Language: BOTSWANAN
[2024-12-28 14:51] VITALS: BP 150/80
--- NOTE | 2024-12-28 17:15 | PTCARENOTE ---
Pt seen by Elia Ryder and Irma Bennett, BRIEN. Telemetry and IV device removed. Discharge instructions reviewed with pt and his regarding medications and their possible side effects, CHF guidelines, wound care, activity and driving
restrictions and follow up appt's. Very good understanding verbalized. Pt escorted out via wheelchair and discharged to home.
== END 2024-12-28 16:42 | disposition home or self-care (01) | DRG 321 ==
LOC: IVU 18:14
PROVIDERS: Hospitalist; Internal Medicine Cardiovascular Disease; Nurse Practitioner; Nurse Practitioner Adult Health; Nurse Practitioner Family; Physician Assistant; Physician Assistant Medical; Student in an Organized Health Care Education/Training Program; ADMITTING PHYSICIAN Hospitalist; ATTENDING PHYSICIAN Internal Medicine; CONSULT PHYSICIAN Thoracic Surgery (Cardiothoracic Vascular Surgery); EMERGENCY PHYSICIAN Emergency Medicine; FAMILY PHYSICIAN Family Medicine; OTHER PHYSICIAN Internal Medicine Interventional Cardiology
PROC: 4A023N7 Measurement of Cardiac Sampling and Pressure, Left Heart, Percutaneous Approach (ICD-10-PCS; 2024-12-22)
PROC: B2151ZZ Fluoroscopy of Left Heart using Low Osmolar Contrast (ICD-10-PCS; 2024-12-22)
PROC: B2111ZZ Fluoroscopy of Multiple Coronary Arteries using Low Osmolar Contrast (ICD-10-PCS; 2024-12-22)
PROC: 4A033BC Measurement of Arterial Pressure, Coronary, Percutaneous Approach (ICD-10-PCS; 2024-12-22)
PROC: B240ZZ3 Ultrasonography of Single Coronary Artery, Intravascular (ICD-10-PCS; 2024-12-26)
PROC: 027035Z Dilation of Coronary Artery, One Artery with Two Drug-eluting Intraluminal Devices, Percutaneous Approach (ICD-10-PCS; 2024-12-26)
DX: I21.4 Non-ST elevation (NSTEMI) myocardial infarction (principal); I50.21 Acute systolic (congestive) heart failure; I16.1 Hypertensive emergency; I25.10 Atherosclerotic heart disease of native coronary artery without angina pectoris; I25.5 Ischemic cardiomyopathy; R73.02 Impaired glucose tolerance (oral); E78.5 Hyperlipidemia, unspecified; I11.0 Hypertensive heart disease with heart failure; R91.1 Solitary pulmonary nodule; I71.40 Abdominal aortic aneurysm, without rupture, unspecified; Z11.52 Encounter for screening for COVID-19; Z79.899 Other long term (current) drug therapy; Z86.16 Personal history of COVID-19
CPT/HCPCS: 71046; 71250; 80048; 80053; 80061; 82248; 83036; 83735; 83880; 84100; 84484; 85025; 85027; 85347; 85610; 85730; 86850; 86900; 86901; 87811; 92978; 93005; 93306; 93458; 93799; 93880; 93970; 96374; 96375; 99152; 99153; 99291; C1725; C1753; C1769; C1874; C1894; C9600; Q9967

== ENCOUNTER 2025-02-06 10:05 | Outpatient (RCR) | payer MEDICARE, SELFPAY | END 2025-02-06 23:59 | disposition home or self-care (01) | LOC: CRHB 10:05 | PROVIDERS: ATTENDING PHYSICIAN Internal Medicine Interventional Cardiology | DX: I25.10 Atherosclerotic heart disease of native coronary artery without angina pectoris (principal); Z95.5 Presence of coronary angioplasty implant and graft | CPT/HCPCS: G0422; G0423 ==

== ENCOUNTER 2025-03-10 10:36 | Outpatient (RCR) | payer MEDICARE, SELFPAY | END 2025-03-10 23:59 | disposition home or self-care (01) | LOC: CRHB 10:36 | PROVIDERS: ATTENDING PHYSICIAN Internal Medicine Interventional Cardiology; FAMILY PHYSICIAN Family Medicine | DX: I25.10 Atherosclerotic heart disease of native coronary artery without angina pectoris (principal); Z95.5 Presence of coronary angioplasty implant and graft | CPT/HCPCS: G0422; G0423 ==

== ENCOUNTER → 2025-03-30 07:58 | Outpatient (REF) | payer MEDICARE, SELFPAY | LOC: RCS 07:58 | PROVIDERS: ATTENDING PHYSICIAN Physician Assistant Medical; FAMILY PHYSICIAN Family Medicine | DX: I21.4 Non-ST elevation (NSTEMI) myocardial infarction (principal); I25.5 Ischemic cardiomyopathy | CPT/HCPCS: 93306 ==

== ENCOUNTER 2025-04-07 08:32 | Outpatient (RCR) | payer MEDICARE, SELFPAY | END 2025-04-07 23:59 | disposition home or self-care (01) | LOC: CRHB 08:32 | PROVIDERS: ATTENDING PHYSICIAN Internal Medicine Interventional Cardiology; FAMILY PHYSICIAN Family Medicine | DX: I25.10 Atherosclerotic heart disease of native coronary artery without angina pectoris (principal); I21.4 Non-ST elevation (NSTEMI) myocardial infarction; I25.2 Old myocardial infarction; Z95.5 Presence of coronary angioplasty implant and graft | CPT/HCPCS: G0422; G0423 ==

== ENCOUNTER 2025-04-10 07:34 | Outpatient (RCR) | payer MEDICARE, SELFPAY | END 2025-04-10 23:59 | disposition home or self-care (01) | LOC: CRHB 07:34 | PROVIDERS: ATTENDING PHYSICIAN Internal Medicine Interventional Cardiology; FAMILY PHYSICIAN Family Medicine | DX: I25.2 Old myocardial infarction (principal); I25.10 Atherosclerotic heart disease of native coronary artery without angina pectoris; Z95.5 Presence of coronary angioplasty implant and graft | CPT/HCPCS: G0422; G0423 ==

== ENCOUNTER 2025-04-10 08:53 | Emergency (ER) | payer MEDICARE, SELFPAY ==
[2025-04-10] VITALS (11 sets, daily range): BP systolic 130–202; BP diastolic 68–112
--- NOTE | 2025-04-10 09:58 | ED.GENMED ---
History of Present Illness
General
Chief Complaint: Blood Pressure Problem
Source: patient
Exam Limitations: none
Time Seen by Provider: 04/10/25 09:50
History of Present Illness
History of Present Illness:
See MDM
Past History
Past History
ED Past Medical History: CAD, HTN and Other (Back pain, diverticulitis)
ED Past Surgical History: Cardiac and Orthopedic (Back surgery)
Social History
Tobacco: Non-smoker
Alcohol: Occasional
Drug: None
Personal:
Living: with family
Employment: Employed
Phy Exam
Physical Exam
Physical Exam:
See MDM
Course
Orders/Labs/Results
Orders:
Orders
04/10/25 08:54
Electrocardiogram (*1) Urgent
Reason for Study: Hypertension, Benign
EKG- Treatment ONCE
04/10/25 09:57
HydrALAZINE [Apresoline] 10 mg IV NOW STA
04/10/25 10:17
Complete Blood Count/With Diff Urgent
Comprehensive Metabolic Panel Urgent
04/10/25 12:31
Valsartan [Diovan] 80 mg PO NOW STA
Abnormal Lab Results
04/10/25
10:17
RBC 4.67 L 10^6/uL
(4.70-6.10)
MCV 97.0 H fL
(80.0-94.0)
MCH 32.8 H pg
(27.0-31.0)
Absolute Lymphs (auto) 1.0 L 10^3/uL
(1.2-3.4)
Lymphocytes % 17.8 L %
(20.5-51.1)
Carbon Dioxide 31 H mmol/L
(22-30)
BUN 25 H mg/dl
(9-20)
Glucose 106 H mg/dl
(70-99)
04/10/25 10:17
04/10/25 10:17
Vital Signs
Initial and Last Documented VS:
Initial Vital Signs
Temp Pulse Resp BP Pulse Ox
98.4 F 58 16 201/109 98
04/10/25 08:56 04/10/25 08:56 04/10/25 08:56 04/10/25 08:56 04/10/25 08:56
Last Documented Vital Signs
Temp Pulse Resp BP Pulse Ox
98.4 F 57 12 135/85 99
04/10/25 08:56 04/10/25 12:00 04/10/25 12:00 04/10/25 12:00 04/10/25 12:12
MDM/Problems Addressed
Differential Diagnosis Includes:
Note:
CHIEF COMPLAINT(S)
Elevated blood pressure detected during cardiac rehabilitation.
HISTORY OF PRESENT ILLNESS
The patient is a 74-year-old male with a history of cardiac stents, who presented for evaluation after elevated blood pressure readings were noted during cardiac rehabilitation sessions. He reports taking blood pressure medications including
carvedilol and valsartan. The patient did not report any recent changes in these medications, though he mentioned they were adjusted in December. He stated that typically his blood pressure is monitored daily at rehabilitation. He disclosed no
symptoms like cough or wheezing but notes he feels his typical self. The sec accountant is aware of his current regimen, which was established post-stent placement earlier this year. The patient�s blood pressure at rehabilitation is usually within
140-150 mm Hg, prompting concern today. The provider plans to adjust the treatment to avoid medication excess and resulting side effects, such as hypotension or wheezing.
PHYSICAL EXAM
General: Alert, no acute distress.
Skin: Warm, dry.
Head: Normocephalic, atraumatic
Neck: Appears supple, trachea midline.
Eyes, Ears, Nose, Mouth, and Throat: Moist mucous membranes
Cardiovascular: No signs of cyanosis. Regular rate and rhythm
Respiratory: Respirations are non-labored.
Abdomen: Non-distended
Musculoskeletal: No deformities. No leg edema
Neurological: No focal neurological deficit observed.
Psychiatric: Cooperative, appropriate mood and affect.
PLAN
- Initiate hydralazine, a vasodilator, to manage the patients hypertension acutely while avoiding potential heart rate reduction.
- Conduct laboratory work to ensure no evidence of hypertensive emergency affecting organ function.
- Review blood pressure response to medication, then contact the cardiology team to discuss possible long-term modifications to the patients antihypertensive regimen.
- Continual monitoring of blood pressure during rehabilitation, ensuring it returns to typical parameters.
DIFFERENTIAL DIAGNOSIS
The Differential Diagnosis includes, in no particular order and is not limited to:
- Hypertensive heart disease
- Essential hypertension
- Secondary hypertension
- Medication noncompliance
- Medication-induced hypertension
- [place]-coat hypertension
- Pheochromocytoma
- Renal artery stenosis
- Hyperthyroidism
- Obstructive sleep apnea
SUMMARY OF ENCOUNTER
The patient was seen in the emergency department following elevated blood pressure readings at cardiac rehabilitation. Management involved starting hydralazine for acute blood pressure control and ordering lab work to rule out organ damage due to
hypertension. Coordination with the cardiology team for ongoing medication adjustments was planned.
MEDICATION RECONCILIATION
- Continue carvedilol and valsartan.
- Initiate hydralazine as per emergency management protocol.
MEDICAL DECISION MAKING
- Complexity of Data Reviewed: Chronic conditions affecting care include a history of stents, essential hypertension, and current medication regimen including carvedilol and valsartan.
- Data:
- Category 1: Laboratory tests were ordered to evaluate potential end-organ damage.
- Category 3: Plan to discuss management with the sec accountant post-evaluation of lab results.
DIAGNOSIS
- Hypertensive urgency (ICD-10: I16.0)
- History of placement of cardiac stents (ICD-10: Z95.5)
EKG
My independent EKG interpretation is:
- Rhythm: Normal sinus rhythm
- Heart Rate: 62 beats per minute
- [place]: Normal axis
- Notable Intervals: Incomplete right bundle branch block
- Abnormalities: No ST elevation
SUMMARY OF ENCOUNTER
The patient was seen in the emergency department due to uncontrolled high blood pressure. The patient required an intravenous dose of hydralazine for acute management. There was no evidence of end-organ damage from the laboratory work, suggesting
management for hypertensive urgency rather than emergency. The case was discussed with cardiology, and the decision was made to maintain the current carvedilol medication while increasing valsartan to 160 mg daily. The patient was comfortable with
the treatment plan, and a follow-up with cardiology was arranged.
EMERGENCY TREATMENTS ADMINISTERED
An intravenous dose of hydralazine was administered to manage high blood pressure acutely.
MANAGEMENT OF THE PATIENTS CARE WAS DISCUSSED WITH
The patient�s care was discussed with the sec accountant court commissioner.
PLAN
The plan includes maintaining the current carvedilol regimen and increasing valsartan to 160 mg daily. The patient will follow up closely with cardiology.
MEDICATION RECONCILIATION
- Continue carvedilol at the current dose.
- Increase valsartan to 160 mg daily.
- Administered hydralazine IV in the ED.
MEDICAL DECISION MAKING
- Number and Complexity of Problems Addressed: Chronic conditions affecting care include hypertension and history of cardiac stents. The Differential Diagnosis includes hypertensive heart disease, essential hypertension, secondary hypertension,
medication noncompliance, medication-induced hypertension, and others.
- Data:
Category 1: No blood work indicated a hypertensive emergency.
Category 3: Discussion of management with the cardiology on-call.
-Risk: Consideration of Admission/Observation: Escalation of care including admission/observation was considered given the complexity and risk of the patients presenting complaint, exam findings, and underlying comorbidities. However, ultimately the
patient is safe for outpatient management with close follow-up. Reasoning: Work-up reassuring, does not reveal any acute life/organ-threatening processes, patients symptoms well controlled upon reevaluation, re-examination is reassuring, vitals are
stable, patient agreeable with discharge, reliable for follow-up.
DIAGNOSIS
- Hypertensive urgency (ICD-10: I16.0)
- History of placement of cardiac stents (ICD-10: Z95.5)
*Pulse Oximetry
SaO2: 100
Oxygen Mode of Delivery: Room air
Patient hypoxic: no
*Critical Care Note
Total Time (30-74mins, 75-104mins- exclusive of procedures): Not Applicable
ED Attending Note
-
Portions of this chart may have been created with voice recognition software.� Occasional wrong word or��sound alike� substitutions may have occurred due to the inherent limitations of voice recognition software.
Discharge Plan
Departure
Patient Disposition: Home (Routine Discharge)
Date of Disposition: 04/10/25
Time of Disposition: 12:33
Patient with high blood pressure during this ER visit?: Yes
Discharge Problem:
Essential (primary) hypertension
Instructions: High Blood Pressure (DC), BLOOD PRESSURE
Prescriptions:
No Action
ashwagandha extract 120 mg Capsule
120 mg PO DAILY
furosemide 40 mg Tablet
40 mg PO DAILY Qty: 30 0RF
atorvastatin 80 mg Tablet
80 mg PO QPM Qty: 30 0RF
carvedilol 6.25 mg Tablet
6.25 mg PO BID Qty: 60 0RF
aspirin 81 mg Tablet,Chewable
81 mg PO DAILY Qty: 30 0RF
ticagrelor [Brilinta] 90 mg tablet
90 mg PO BID Qty: 60 0RF
dapagliflozin propanediol 10 mg Tablet
10 mg PO DAILY Qty: 30 0RF
valsartan
1 tab PO DAILY
Patient Comments:
? strength
Referrals:
Zay Bauman DO [Family Provider, Family Practice]
Activity Restrictions/Additional Instructions:
The sec accountant is aware of your uncontrolled high blood pressure. They recommended keeping your carvedilol prescription as is (6.25 mg twice a day). However, they are going to double your valsartan. Instead of taking 80 mg in the morning,
please take 2 tablets (160 mg) in the morning. They indicated that they will reach out to you for blood pressure check in the next week or so. Please return for any worsening symptoms.
You may return at any time if you have further concerns.
Please follow up with your doctor at the first available appointment, preferably this week.
Thank you for choosing [facility].
Interventions
Interventions:
*Risk Screen - Suicide Last Done: 04/10/25 09:02
*General Assessment Last Done: 04/10/25 09:02
*Neglect/Abuse Screening Last Done: 04/10/25 09:02
*ED COVID-19 Vaccine History Last Done: 04/10/25 09:45
*ED Influenza Vaccine History Last Done: 04/10/25 09:45
[facility] Fall Risk Assessment Tool Last Done: 04/10/25 09:46
ED- Cardiac Assessment Last Done: 04/10/25 11:43
ED- Neurological Assessment Last Done: 04/10/25 11:43
ED- Pulmonary Assessment Last Done: 04/10/25 11:43
Discharge Date and Time
Print Language: CANADIAN
[2025-04-10 10:32] LABS: Hematocrit 45.3 % (39.0-52.0); Hemoglobin 15.3 g/dL (13.0-18.0); Mean Corp Hgb Conc. 33.8 g/dL (33.0-37.0); Mean Corpuscular Volume 97.0 fL (80.0-94.0); Nucleated Red Blood Cells % 0 % (-); Platelet Count 165 10^3/uL (130-400); Red Cell Dist. Width 13.7 % (11.5-14.5)
[2025-04-10 10:45] LABS: ALT (SGPT) 45 U/L (0-50); AST (SGOT) 34 U/L (17-59); Albumin 4.5 g/dl (3.5-5.0); Alkaline Phosphatase 120 U/L (38-126); Blood Urea Nitrogen 25 mg/dl (9-20); Calcium 8.9 mg/dl (8.4-10.2); Carbon Dioxide 31 mmol/L (22-30); Chloride 100 mmol/L (98-107); Glucose 106 mg/dl (70-99); Potassium 4.0 mmol/L (3.5-5.1); Sodium 138 mmol/L (135-145); Total Protein 7.8 g/dl (6.3-8.2); eGFR 56.93
[2025-04-10] MEDS: APRESOLINE 10 MG IV (10:46)
[2025-04-10] MEDS: DIOVAN 80 MG PO (12:47)
== END 2025-04-10 12:52 | disposition home or self-care (01) ==
LOC: EMR 08:53
PROVIDERS: EMERGENCY PHYSICIAN Student in an Organized Health Care Education/Training Program; FAMILY PHYSICIAN Family Medicine
DX: I16.0 Hypertensive urgency (principal); I45.10 Unspecified right bundle-branch block; I25.10 Atherosclerotic heart disease of native coronary artery without angina pectoris; Z79.899 Other long term (current) drug therapy; Z95.5 Presence of coronary angioplasty implant and graft
CPT/HCPCS: 96374; 99284; 80053; 85025; 93005